=== PATIENT | male | born 1940 | race Caucasian/White ===

== ENCOUNTER 2021-11-14 17:55 | Inpatient (IN) | payer MEDICARE, SELFPAY ==
[2021-11-14] VITALS (8 sets, daily range): BP systolic 102–138; BP diastolic 61–103; PULSE 59–77; RESP 13–26; TEMP 36.6–37.3; O2SAT 78–96; BMI 30.8; BMI 30.7
--- NOTE | 2021-11-14 18:08 | EKG12_ITS ---
Test Reason : Blood Pressure : / mmHG Vent. Rate : 063 BPM Atrial Rate : 093 BPM P-R Int : 000 ms QRS Dur : 102 ms QT Int : 414 ms P-R-T Axes : 064 -20 043 degrees QTc Int : 423 ms Sinus rhythm with 2nd degree A-V block (Mobitz I) Inferior-posterior infarct , age undetermined Abnormal ECG Confirmed by RAMONA ALLEN, JEANNETTE ([id number]), technical writer and editor WIN ZAMORA ([id number]) on 11/15/2021 1:24:23 PM Referred By: Confirmed By:JEANNETTE GREENE MD
--- NOTE | 2021-11-14 18:08 | RAD_ITS ---
STUDY: X-RAY CHEST REASON FOR EXAM: Male, 81 years old. dyspnea, cough TECHNIQUE: Single AP portable view of the chest. COMPARISON: None. FINDINGS: Patchy alveolar opacities throughout both lungs consistent with bilateral pneumonia. There is no demonstrated pleural abnormality. There is moderate cardiac enlargement. Normal mediastinum and kaela. Normal visualized pulmonary arteries. Normal visualized aortic arch and descending thoracic aorta. Normal visualized thoracic spine. Normal visualized ribs, clavicles, and shoulders. There is no demonstrated abnormality of the visualized soft tissue structures of the upper abdomen. RAD/Chest 1 View (Portable) IMPRESSION: Patchy bilateral pneumonia. Electronically Signed: Serafin Martinez MD at 18:49 EDT ,
--- NOTE | 2021-11-14 18:09 | ED.VIS.DYS ---
HPI History of Present Illness Chief Complaint: Shortness of Breath Informant: patient and spouse/S.O. Onset/Context/Timing Onset: Weeks (1) Context: gradual and onset Timing: Continuous Quality: Positive for Dyspnea on exertion (Now at rest) Current Severity: Moderate Maximum Severity: Moderate Worsened by: Exertion and Coughing; Not Worsened By Lying flat Relieved by: Rest Associated Symptoms cough Chest Pain: Positive for None Narrative Narrative: Patient has been having cough for about 2 weeks, short of breath for about the past week, was checking his oxygen levels today and he was in the 70s. He is not on oxygen, he is healthy except for history of sleep apnea. He went to urgent care about a week ago when he started feeling short of breath, they put him on doxycycline and prednisone for his cough. He has been taking those for the last week and progressively getting worse with regards to his symptoms. No chest discomfort, no pedal edema, no palpitations. [facility] Medical History Former smoker Sleep apnea Home Medications aspirin [Halfprin] 81 mg PO DAILY 11/14/21 [History Last Taken Unknown] doxycycline hyclate 100 mg PO BID 11/14/21 [History Last Taken Unknown] multivitamin with iron [Multivitamins/Iron FC] 1 tab PO DAILY 11/14/21 [History Last Taken Unknown] prednisone 40 mg PO DAILY 11/14/21 [History Last Taken Unknown] Allergy/AdvReac Type Severity Reaction Status Date / Time No Known Allergies Allergy Verified 11/14/21 17:57 Surgical History (Updated 11/14/21 @ 18:02 by Domingo Rose) History of appendectomy Hx of tonsillectomy Social History Smoking Status: Former smoker ROS ROS ED Constitutional Constitutional ED: Reports fatigue, fever(s) and malaise; Denies body ache(s), chills or headache(s) Eyes Eyes: Denies change in vision or diplopia ENT ENT ED: Denies rhinorrhea or sore throat Cardiovascular Cardiovascular: Denies chest pain, orthopnea or palpitations Respiratory/Chest Respiratory/Chest: Reports cough, dyspnea and dyspnea on exertion; Denies orthopnea Gastrointestinal Gastrointestinal: Denies abdominal pain, diarrhea, nausea or vomiting Genitourinary Genitourinary ED: Denies dysuria or hematuria Musculoskeletal Musculoskeletal: Denies back pain or neck pain Integumentary Denies abscess or rash Neurologic Neurologic: Denies headache(s), paresthesias or weakness Psychiatric Psychiatric: Denies anxiety or suicidal thoughts EXAM Physical Exam Const Vital Signs: 11/14/21 17:57 11/14/21 17:59 11/14/21 18:17 Temperature 99.1 F Temperature Source Oral Pulse Rate 76 70 Respiratory Rate 26 H 21 H Respiratory Effort Short of Breath Respiratory Depth Shallow Respiratory Pattern Tachypnea Blood Pressure 137/103 H 137/103 H Blood Pressure Mean 114 114 Pulse Ox 78 95 Oxygen Delivery Method Room Air Nasal Cannula Nasal Cannula Oxygen Flow Rate (L/min) 3 3 11/14/21 18:18 11/14/21 18:57 11/14/21 19:11 Temperature 99.1 F Temperature Source Temporal Pulse Rate 68 77 71 Respiratory Rate 20 H 18 13 Respiratory Effort Respiratory Depth Respiratory Pattern Blood Pressure 126/79 H 121/61 H 102/75 Blood Pressure Mean 94 81 84 Pulse Ox 92 94 96 Oxygen Delivery Method Nasal Cannula Nasal Cannula Nasal Cannula Oxygen Flow Rate (L/min) 3 Positive well nourished and well developed Constitutional Narrative: Well-appearing, no distress General Appearance ED: well developed and NAD HEENT Reports moist mucous membranes normocephalic and atraumatic Eyes PERRL and EOMs intact bilaterally Neck full ROM and supple Resp normal respiratory effort Resp Narrative: High-pitched rhonchi both bases Effort and Inspection: able to speak in complete sentences Cardio no murmurs Rate: Negative for bradycardia or tachycardic Rhythm: abnormal rhythm irregularly irregular GI non-tender and non-distended Auscultation: normoactive bowel sounds Palpation: soft Back/Spine no CVA tenderness General Back: other FROM Extremity normal to inspection and no calf tenderness General Extremety ED: Negative for edema, pulses abnormal or tenderness General Extremity: Negative for edema or pulses abnormal Neuro oriented x3, CN's II-XII intact bilaterally and no sensory deficits noted Sensorium / Orientation: awake and alert Motor Exam: strength 5/5 throughout Skin no rashes or lesions noted and no wounds MDM MDM MDM Narrative Medical decision making narrative: At rest patient is doing well without dyspnea requiring breathing treatment or other acute intervention except for oxygen, on O2 liter cannula he is doing well at 94-96%. Given his oxygen requirement, failure of outpatient doxycycline that he has been on for 1 week, we will start him on antibiotics including Zithromax to cover atypicals and admit him to the hospital for further treatment and evaluation. Lab Data Attestation: I reviewed the patient's lab results. Labs: Laboratory Results - last 24 hr 11/14/21 11/14/21 11/14/21 18:10 18:10 18:10 WBC 16.2 H RBC 4.79 Hgb 15.2 Hct 43.7 MCV 91.2 MCH 31.7 MCHC 34.8 RDW Std Deviation 41.0 RDW Coeff of Una 12.4 Plt Count 342 MPV 9.6 Immature Gran % (Auto) 1.000 H Neut % (Auto) 86.5 H Lymph % (Auto) 4.[address] [place] % (Auto) 6.5 Eos % (Auto) 1.6 Baso % (Auto) 0.3 Absolute Neuts (auto) 14.1 H Absolute Lymphs (auto) 0.67 L Nucleated RBC % 0 Sodium 136 Potassium 3.3 L Chloride 103 Carbon Dioxide 26.0 Anion Gap 7 BUN 21 H Creatinine 1.04 Estim Creat Clear Calc 46.81 Est GFR (MDRD) Af Amer 88 Est GFR (MDRD) Non-Af 72 BUN/Creatinine Ratio 20.2 H Glucose 134 H Lactic Acid 1.7 Calcium 9.2 Troponin I High Sens 22 B-Natriuretic Peptide 11/14/21 18:10 WBC RBC Hgb Hct MCV MCH MCHC RDW Std Deviation RDW Coeff of Una Plt Count MPV Immature Gran % (Auto) Neut % (Auto) Lymph % (Auto) [place] % (Auto) Eos % (Auto) Baso % (Auto) Absolute Neuts (auto) Absolute Lymphs (auto) Nucleated RBC % Sodium Potassium Chloride Carbon Dioxide Anion Gap BUN Creatinine Estim Creat Clear Calc Est GFR (MDRD) Af Amer Est GFR (MDRD) Non-Af BUN/Creatinine Ratio Glucose Lactic Acid Calcium Troponin I High Sens B-Natriuretic Peptide 89.5 Radiography Chest X-Ray - ED: 1 View, Read by ED Physician and Left Infiltrate Diagnostic Testing: Clinical Impression(s) from Imaging Studies Chest X-Ray 11/14/21 18:08 IMPRESSION: Patchy bilateral pneumonia. Electronically Signed: Serafin Martinez MD at 18:49 EDT , Rhythm Strip Rhythm Strip: poss afib (see ekg) Rate: 70 Ectopy: None EKG Initial EKG: Attestation: I personally reviewed and interpreted this EKG as follows: Interpretation: Sinus Rhythm, No Acute Injury Pattern, LAFB and AV Block (Type 1 Mobitz) Comments: inf Q waves Prior: No Prior Discharge Plan Dx/Rx/DC Orders Clinical Impression: Sepsis due to pneumonia, Pneumonia, Hypoxemia, Failure of outpatient treatment Disposition Disposition: Acute Care Hospital [facility]
[2021-11-14 18:33] LABS: Absolute Lymphocyte Count 0.67 X10^3/uL (0.83-4.51); Absolute Neutrophil Count 14.1 X10^3/uL (2.0-7.7); Basophil# 0.05 X10^3/uL; Basophil% 0.3 % (0-1); Eosinophil# 0.26 X10^3/uL; Eosinophils% 1.6 % (0-5); Hematocrit 43.7 % (40-54); Hemoglobin 15.2 g/dL (13.0-16.5); Lymphocyte # 0.67 X10^3/ul (0.83-4.51); Lymphocyte % 4.1 % (19-41); Mean Corp Hgb Conc 34.8 g/dL (32-36); Mean Corpuscular Hgb 31.7 pg (27.0-32.0); Mean Corpuscular Volume 91.2 fL (80-94); Mean Platelet Vol. 9.6 fl (6.2-12.0); Monocyte# 1.05 X10^3/uL; Monocyte% 6.5 % (0-10); NRBC Flagged by Analyzer 0 % (0-5); Neutrophil # 14.05 X10^3/uL (2.7-7.7); Neutrophil % 86.5 % (47-70); Platelet Count 342 K/mm3 (150-450); RBC Distribution Width CV 12.4 % (11.6-14.6); Red Blood Count 4.79 M/mm3 (4.6-6.2); White Blood Count 16.2 K/mm3 (4.4-11.0)
[2021-11-14 19:08] LABS: BNP,B-Type NATRIURETIC PEPTIDE 89.5 pg/mL (0-100)
[2021-11-14 19:09] LABS: Anion Gap 7 (5-15); BUN 21 mg/dL (7-18); BUN/Creat Ratio 20.2 RATIO (10-20); Calcium,Total 9.2 mg/dL (8.5-10.1); Chloride 103 mmol/L (98-107); Creatinine, Serum 1.04 mg/dL (0.70-1.30); EST Glomerular Filtration Rate 72 mL/min (>60); Est Glom Filt Rate - Afr Amer 88 mL/min (>60); Estimated Creatinine Clearance 46.81 ml/min; Glucose 134 mg/dL (74-106); Potassium 3.3 mmol/L (3.5-5.1); Sodium Level 136 mmol/L (136-145); Troponin-I HS 22 pg/mL (3.0-78.0)
[2021-11-14 19:12] LABS: Lactic Acid 1.7 mmol/L (0.4-1.9)
--- NOTE | 2021-11-14 19:29 | HP.PCM_ITS ---
Documented by User: FLORIDALMA Khan 11/14/21 19:43 HPI - General General Date of Admission: 11/14/21 Date of Service: 11/14/21 Chief Complaint: Shortness of breath HPI Narrative ELSY RIVERA, is a 81 M who presents with complaints of shortness of breath. Patient states that he was diagnosed outpatient to have pneumonia and was placed on doxycycline and a prednisone taper. Patient states that despite this he has had increasing shortness of breath and has been getting worse instead of better. Patient noted to be hypoxic on arrival to ER with oxygen saturations at 78% on room air. Patient currently on nasal cannula oxygen at 3 L/min with O2 sat 96%. Patient denies any significant medical history and states that he does have sleep apnea however he does not wear CPAP or BiPAP for this. Patient states his only medication at home is a baby aspirin as well as a multivitamin. Patient identifies his primary care physician as Dr. Salinas. [facility] Medical History (Updated 11/14/21 @ 19:37 by BRANDI KhanC) Former smoker Sleep apnea Home Medications aspirin [Halfprin] 81 mg PO DAILY 11/14/21 [History Last Taken Unknown] doxycycline hyclate 100 mg PO BID 11/14/21 [History Last Taken Unknown] multivitamin with iron [Multivitamins/Iron FC] 1 tab PO DAILY 11/14/21 [History Last Taken Unknown] prednisone 40 mg PO DAILY 11/14/21 [History Last Taken Unknown] Allergy/AdvReac Type Severity Reaction Status Date / Time No Known Allergies Allergy Verified 11/14/21 17:57 Family History (Updated 11/14/21 @ 19:[address] Maryam Rodriguez MD) Father Myocardial infarction Heart disease Hypertension Mother Dementia Surgical History (Updated 11/14/21 @ 19:[address] Maryam Rodriguez MD) History of appendectomy History of surgery on arm Hx of tonsillectomy S/P bilateral cataract extraction Social History (Updated 11/14/21 @ 19:[address] Maryam Rodriguez MD) household members: spouse housing: house Smoking Status: Former smoker how long ago did patient quit smoking: Quit ~ 10 yrs prior, smoked 1 ppd initially then trended to 2-3 cig/day. alcohol intake: current alcohol intake frequency: 0-2 drinks per day details: 1 cocktail with dinner daily. substance use type: does not use ROS Constitutional Constitutional: Reports malaise; Denies anorexia, chills, fatigue or fever(s) Cardiovascular Cardiovascular: Denies chest pain, edema, palpitations or syncope Respiratory/Chest Respiratory/Chest: Reports cough, shortness of breath at rest, shortness of breath with exertion and wheezing Gastrointestinal Gastrointestinal: Denies abdominal pain, constipation, diarrhea, nausea or vomiting Genitourinary Genitourinary: Denies dysuria Musculoskeletal Musculoskeletal: Denies back pain, extremity pain, joint pain or joint stiffness Integumentary Integumentary: Denies dry skin Neurologic Neurologic: Denies abnormal gait, abnormal speech, confusion or dizziness Psychiatric Psychiatric: Denies anxiety or depression Endocrine Endocrinology: Denies change in body appearance Hematologic/Lymphatic Hematologic/Lymphatic: Denies anemia or easy bleeding Vital Signs Vital Signs Vital Signs: 11/14/21 17:57 11/14/21 17:59 11/14/21 18:17 Temperature 99.1 F Temperature Source Oral Pulse Rate 76 70 Respiratory Rate 26 H 21 H Respiratory Effort Short of Breath Respiratory Depth Shallow Respiratory Pattern Tachypnea Blood Pressure 137/103 H 137/103 H Blood Pressure Mean 114 114 Pulse Ox 78 95 Oxygen Delivery Method Room Air Nasal Cannula Nasal Cannula Oxygen Flow Rate (L/min) 3 3 11/14/21 18:18 11/14/21 18:57 11/14/21 19:11 Temperature 99.1 F Temperature Source Temporal Pulse Rate 68 77 71 Respiratory Rate 20 H 18 13 Respiratory Effort Respiratory Depth Respiratory Pattern Blood Pressure 126/79 H 121/61 H 102/75 Blood Pressure Mean 94 81 84 Pulse Ox 92 94 96 Oxygen Delivery Method Nasal Cannula Nasal Cannula Nasal Cannula Oxygen Flow Rate (L/min) 3 Weight Weight: 185 lb 6.54 oz Body Mass Index (BMI) 30.8 Physical Exam Const alert, oriented x3 and no apparent distress General Appearance: cooperative HEENT normocephalic and head/scalp atraumatic Eyes conjunctivae normal and no scleral icterus Neck no lymphadenopathy and supple General: trachea midline Resp normal respiratory effort and normal air movement Auscultation: wheezes expiratory wheezes, scattered wheezes, anterior and posterior Cardio regular rate, regular rhythm, S1 normal heart sound, S2 normal heart sound and peripheral pulses 2+ throughout GI normal to inspection, nondistended, normoactive bowel sounds, soft to palpation and non-tender Extremity normal capillary refill and no clubbing, cyanosis or edema General Extremity: no tenderness to palpation of joints or extremities Skin General Skin Exam: no breakdown and turgor normal Lesions: no lesions Rashes: no rashes Neuro no focal motor deficits and no sensory deficits noted Motor Exam: Negative for general weakness Psych thought process normal, cooperative and affect normal Appearance: appropriate Results Lab / Micro Data Result Diagrams: 11/14/21 18:10 11/14/21 18:10 Labs: Laboratory Results - last 24 hr 11/14/21 18:10: WBC 16.2 H, RBC 4.79, Hgb 15.2, Hct 43.7, MCV 91.2, MCH 31.7, MCHC 34.8, RDW Std Deviation 41.0, RDW Coeff of Una 12.4, Plt Count 342, MPV 9.6, Immature Gran % (Auto) 1.000 H, Neut % (Auto) 86.5 H, Lymph % (Auto) 4.1 L, [place] % (Auto) 6.5, Eos % (Auto) 1.6, Baso % (Auto) 0.3, Absolute Neuts (auto) 14.1 H, Absolute Lymphs (auto) 0.67 L, Nucleated RBC % 0 11/14/21 18:10: Sodium 136, Potassium 3.3 L, Chloride 103, Carbon Dioxide 26.0, Anion Gap 7, BUN 21 H, Creatinine 1.04, Estim Creat Clear Calc 46.81, Est GFR (MDRD) Af Amer 88, Est GFR (MDRD) Non-Af 72, BUN/Creatinine Ratio 20.2 H, Glucose 134 H, Calcium 9.2, Troponin I High Sens 22 11/14/21 18:10: Lactic Acid 1.7 11/14/21 18:10: B-Natriuretic Peptide 89.5 Micro: Microbiology 11/14/21 18:27 Nasal Secretion SARS-CoV-2 & FLU Antigen (Rapid) - Final Rhythm Strip Rhythm Strip: poss afib (see ekg) Rate: 70 Ectopy: None Radiology Impression Chest X-Ray 11/14/21 18:08 IMPRESSION: Patchy bilateral pneumonia. Electronically Signed: Serafin Martinez MD at 18:49 EDT , Assessment & Plan Assessment/Plan (1) Pneumonia: QUALIFIERS: Laterality: bilateral Lung location: unspecified part of lung Pneumonia type: due to unspecified organism Qualified Code(s): J18.9 - Pneumonia, unspecified organism (2) Hypoxemia: (3) Failure of outpatient treatment: PLAN: 1. Acute hypoxia secondary to bilateral pneumonia -Admit to [facility] -Patient has been on doxycycline and prednisone for 5 days with no improvement and increasing shortness of breath, will DC prednisone and doxycycline -Patient placed on Rocephin and azithromycin -Sputum culture ordered -Encourage incentive spirometry -PT and OT to eval and treat -CBC, CMP ordered for a.m. -Urine Legionella and strep pneumonia ordered -Respiratory panel and COVID panel ordered -Scheduled DuoNeb nebulizer treatments as well as as needed albuterol treatments ordered -Vital signs per protocol, currently stable 2. Hypokalemia -Patient mildly hypokalemic at 3.3 -Potassium chloride 40 mEq p.o. x1 ordered -CMP ordered for a.m. -We will check magnesium level 3. Leukocytosis -Likely secondary to p.o. steroids that patient has been on for 5 days however due to pneumonia we will continue to monitor with daily CBC DVT prophylaxis-subcu Lovenox This patient was seen by Alis Grey NP-C under the supervision of Dr. Rodriguez. 28 minutes spent in clinical coordination of patient's plan of care. Documented by User: Dr. Maryam Rodriguez MD 11/14/21 19:44 HPI - General General Date of Admission: 11/14/21 [facility] Medical History (Updated 11/14/21 @ 19:37 by Alis Grey NP-C) Former smoker Sleep apnea Home Medications aspirin [Halfprin] 81 mg PO DAILY 11/14/21 [History Last Taken Unknown] doxycycline hyclate 100 mg PO BID 11/14/21 [History Last Taken Unknown] multivitamin with iron [Multivitamins/Iron FC] 1 tab PO DAILY 11/14/21 [History Last Taken Unknown] prednisone 40 mg PO DAILY 11/14/21 [History Last Taken Unknown] Allergy/AdvReac Type Severity Reaction Status Date / Time No Known Allergies Allergy Verified 11/14/21 17:57 Family History (Updated 11/14/21 @ 19:[address] Maryam Rodriguez MD) Father Myocardial infarction Heart disease Hypertension Mother Dementia Surgical History (Updated 11/14/21 @ 19:[address] Maryam Rodriguez MD) History of appendectomy History of surgery on arm Hx of tonsillectomy S/P bilateral cataract extraction Social History (Updated 11/14/21 @ 19:[address] Maryam Rodriguez MD) household members: spouse housing: house Smoking Status: Former smoker how long ago did patient quit smoking: Quit ~ 10 yrs prior, smoked 1 ppd initially then trended to 2-3 cig/day. alcohol intake: current alcohol intake frequency: 0-2 drinks per day details: 1 cocktail with dinner daily. substance use type: does not use Results Lab / Micro Data Result Diagrams: 11/14/21 18:10 11/14/21 18:10
[2021-11-14] MEDS: Ipratropium/Albuterol Sulfate 3 ML AMPUL.NEB INHALATION (20:30)
[2021-11-14] MEDS: 0.9% Normal Saline 1,000 ML 100 ML IV (21:26)
[2021-11-14] MEDS: Potassium Chloride Oral Tablet 20 MEQ 40 MEQ PO (21:44)
[2021-11-15] VITALS (11 sets, daily range): BP systolic 115–126; BP diastolic 48–68; PULSE 50–86; RESP 16–22; TEMP 36.6–38.1; O2SAT 90–95
[2021-11-15] MEDS: Albuterol 2.5 MG/3 ML VIAL.NEB. INHALATION (03:50)
[2021-11-15 05:37] LABS: Absolute Lymphocyte Count 0.52 X10^3/uL (0.83-4.51); Absolute Neutrophil Count 13.4 X10^3/uL (2.0-7.7); Basophil# 0.04 X10^3/uL; Basophil% 0.3 % (0-1); Eosinophil# 0.14 X10^3/uL; Eosinophils% 0.9 % (0-5); Lymphocyte # 0.52 X10^3/ul (0.83-4.51); Lymphocyte % 3.5 % (19-41); Mean Corp Hgb Conc 35.1 g/dL (32-36); Mean Corpuscular Hgb 31.8 pg (27.0-32.0); Mean Corpuscular Volume 90.5 fL (80-94); Mean Platelet Vol. 9.5 fl (6.2-12.0); Monocyte# 0.87 X10^3/uL; Monocyte% 5.8 % (0-10); NRBC Flagged by Analyzer 0 % (0-5); Neutrophil # 13.38 X10^3/uL (2.7-7.7); Neutrophil % 88.7 % (47-70); POSITIVE DIFFERENTIAL YES; Platelet Count 273 K/mm3 (150-450); RBC Distribution Width CV 12.4 % (11.6-14.6); Red Blood Count 4.09 M/mm3 (4.6-6.2); White Blood Count 15.1 K/mm3 (4.4-11.0)
[2021-11-15 05:40] LABS: Differential Indicated SCAN CRITERIA MET
[2021-11-15 06:01] LABS: BUN 19 mg/dL (7-18); Creatinine, Serum 0.85 mg/dL (0.70-1.30); EST Glomerular Filtration Rate 91 mL/min (>60); Estimated Creatinine Clearance 55.14 ml/min; Glucose 136 mg/dL (74-106)
[2021-11-15 06:02] LABS: ALB/GLOB Ratio 0.7 RATIO (0.9-2.4); AST(SGOT) 23 U/L (15-37); Alanine Aminotransfer ALT/SGPT 18 U/L (16-61); Albumin, Serum 2.5 g/dL (3.2-5.0); Alkaline Phosphatase 63 U/L (45-117); Anion Gap 6 (5-15); BUN/Creat Ratio 22.3 RATIO (10-20); Calcium,Total 8.4 mg/dL (8.5-10.1); Chloride 106 mmol/L (98-107); Est Glom Filt Rate - Afr Amer 110 mL/min (>60); Globulin 3.4 g/dL (2.2-4.2); Potassium 3.8 mmol/L (3.5-5.1); Protein, Total 5.9 g/dL (6.4-8.2); Sodium Level 136 mmol/L (136-145)
[2021-11-15] MEDS: Ipratropium/Albuterol Sulfate 3 ML AMPUL.NEB INHALATION ×3 (06:59→19:36)
[2021-11-15] MEDS: Aspirin E.C. 81 MG Tablet PO (08:17)
[2021-11-15] MEDS: Enoxaparin 40 MG/0.4 ML Syringe SC (08:17)
--- NOTE | 2021-11-15 09:43 | PN.HOSP_ITS ---
Subjective Subjective Patient is an 81-year-old gentleman presenting with 2-week history of persistent cough and progressive shortness of breath over the past couple of days. Chest x-ray obtained on admission demonstrated patchy bilateral pneumonia admitted to regular nursing floor where patient is currently being managed Objective Data Objective Data Vital Signs: Vital Signs Temp Pulse Resp BP Pulse Ox 99.3 F H 74 22 H 126/68 H 92 11/15/21 08:15 11/15/21 08:15 11/15/21 08:15 11/15/21 08:15 11/15/21 08:15 Oxygen Flow Rate (L/min) 3 Oxygen Delivery Method Nasal Cannula Weight: 85.4 kg Body Mass Index (BMI) 30.7 Intake & Output: Intake and Output for Last 24 Hours 11/13/21 11/14/21 11/15/21 23:59 23:59 23:59 Intake Total 315 / 315 980 / 980 Balance 315 / 315 980 / 980 Lab / Micro Data Result Diagrams: 11/15/21 05:28 11/15/21 05:28 Labs: Laboratory Results - last 24 hr 11/14/21 18:10: WBC 16.2 H, RBC 4.79, Hgb 15.2, Hct 43.7, MCV 91.2, MCH 31.7, MCHC 34.8, RDW Std Deviation 41.0, RDW Coeff of Una 12.4, Plt Count 342, MPV 9.6, Immature Gran % (Auto) 1.000 H, Neut % (Auto) 86.5 H, Lymph % (Auto) 4.1 L, [place] % (Auto) 6.5, Eos % (Auto) 1.6, Baso % (Auto) 0.3, Absolute Neuts (auto) 14.1 H, Absolute Lymphs (auto) 0.67 L, Nucleated RBC % 0 11/14/21 18:10: Sodium 136, Potassium 3.3 L, Chloride 103, Carbon Dioxide 26.0, Anion Gap 7, BUN 21 H, Creatinine 1.04, Estim Creat Clear Calc 46.81, Est GFR (MDRD) Af Amer 88, Est GFR (MDRD) Non-Af 72, BUN/Creatinine Ratio 20.2 H, Glucose 134 H, Calcium 9.2, Troponin I High Sens 22 11/14/21 18:10: Lactic Acid 1.7 11/14/21 18:10: B-Natriuretic Peptide 89.5 11/14/21 18:10: Magnesium 2.0 11/15/21 05:28: WBC 15.1 H, RBC 4.09 L, Hgb 13.0, Hct 37.0 L, MCV 90.5, MCH 31.8, MCHC 35.1, RDW Std Deviation 41.0, RDW Coeff of Una 12.4, Plt Count 273, MPV 9.5, Immature Gran % (Auto) 0.800, Neut % (Auto) 88.7 H, Lymph % (Auto) 3.5 L, [place] % (Auto) 5.8, Eos % (Auto) 0.9, Baso % (Auto) 0.3, Absolute Neuts (auto) 13.4 H, Absolute Lymphs (auto) 0.52 L, Nucleated RBC % 0 11/15/21 05:28: Sodium 136, Potassium 3.8, Chloride 106, Carbon Dioxide 24.0, Anion Gap 6, BUN 19 H, Creatinine 0.85, Estim Creat Clear Calc 55.14, Est GFR (MDRD) Af Amer 110, Est GFR (MDRD) Non-Af 91, BUN/Creatinine Ratio 22.3 H, Glucose 136 H, Calcium 8.4 L, Total Bilirubin 0.60, AST 23, ALT 18, Alkaline Phosphatase 63, Total Protein 5.9 L, Albumin 2.5 L, Globulin 3.4, Albumin/Globulin Ratio 0.7 L Micro: Microbiology 11/14/21 20:25 Mucosa - Nasopharyngeal Respiratory Panel (PCR) - Final 11/14/21 22:00 Urine, Clean Catch Legionella Antigen - Final 11/14/21 22:00 Interface Orders Streptococcus pneumoniae Antigen (M - Final 11/14/21 18:27 Nasal Secretion SARS-CoV-2 & FLU Antigen (Rapid) - Final Radiography Diagnostic Testing: Radiology Impression Chest X-Ray 11/14/21 18:08 IMPRESSION: Patchy bilateral pneumonia. Electronically Signed: Serafin Martinez MD at 18:49 EDT , Rhythm Strip Rhythm Strip: poss afib (see ekg) Rate: 70 Ectopy: None Physical Exam Narrative GENERAL: cooperative but dyspneic at rest HEENT: Atraumatic; EYES; Anicteric, Normal Conjunctiva NECK; supple, normal thyroid, RESPIRATORY: Diminished to auscultation CARDIOVASCULAR: Regular S1 S2, GI: soft, normoactive bowel sounds, : No Renal angle tenderness; EXTREMITIES: No edema, no clubbing, MUSCULOSKELETAL: no muscle wasting NEURO: Awake; no lateralizing signs. SKIN: No Rash PSYCH; Flat affect Assessment & Plan Assessment/Plan (1) Pneumonia: QUALIFIERS: Pneumonia type: due to unspecified organism Laterality: bilateral Lung location: unspecified part of lung Qualified Code(s): J18.9 - Pneumonia, unspecified organism (2) Hypoxemia: (3) Failure of outpatient treatment: PLAN: Patient is an 81-year-old gentleman presenting with 2-week history of persistent cough and progressive shortness of breath over the past couple of days. Chest x-ray obtained on admission demonstrated patchy bilateral pneumonia admitted to regular nursing floor where patient is currently being managed 1. Acute hypoxic respiratory failure ? Present on admission. This is secondary to patient bilateral pneumonia patient was placed on broad-spectrum antibiotic therapy as well as supplemental oxygen which is currently being titrated to keep saturation greater than 90. Patient still remains hypoxic and dyspneic at rest. Patient was on IV fluid this is being continued given 40 mg of IV Lasix for suspected fluid overload 2. Obstructive sleep apnea ? Per history patient currently does not use any PAP therapy at night 3. Hypokalemia ? Corrected per protocol subsequent monitoring with daily BMPs ordered 4. Class I obesity with BMI of 31.4 ? Weight loss advised 5. Leukocytosis ? Due to patient's underlying infection as well as recent steroid use monitoring with daily CBC 6. DVT prophylaxis ? SC Lovenox Charges/Coding Visit Charges Inpatient E&M: 54692 Subs Hosp L3
[2021-11-15] MEDS: Furosemide 40 MG/4 ML Vial IV (10:21)
[2021-11-15] MEDS: 0.9% Saline Lock 10 ML Syringe IV ×2 (10:21→20:37)
--- NOTE | 2021-11-15 13:05 | CASEMGMT ---
CAITLIN CROWDER Assessment: Face to Face with pt for initial transition planning/care coordination assessment. CAITLIN CROWDER introduced self and role at [facility], pt voices understanding and consents to assessment. Pt is A/O x4 and answers all questions appropriately at this time. Pt just left from room. Pt just got out of the bathroom and is now back in chair, O2 on and patient sob with conversation. Care providers, pharmacy, and demographics verified/updated. Admitting Dx: hypoxia, bilat pna PCP:Rita Specialists: Pt denies having any specialists. Preferred Pharmacy: [facility] Insurance: [facility] Prescription Benefit: yes LW/HPOA: Pt states he has a LW/DPOA and his DPOA is his . He is aware this is not on file at [facility] and he may bring in to be scanned into chart. LNOK: Sarah Willson, Living Arrangements: Pt lives with in a single story house with 1 step to enter with a rail. Pt reports he is I in ADL's and denies concerns at home. Transportation: Pt drives self and denies concerns with transportation. DME/HHC/SNF: Pt has a pox at home and no further DME. Pt denies hx of HHC or SNF stays. Pt states no concerns with going home at time of dc. Discussed local in network DME companies should pt need O2 at dc, pt denies preference. Discussed therapy post dc if recommended. Pt states he is not opposed to this. Pt states he would designate his to discuss dc plans with if you need to discuss it with someone, but prefers not. Pt states no further concerns/needs. CM to follow. Advised pt to ask CM if any further question/concerns/needs arise, voices understanding. Pt Goal: Home Plan: Home
[2021-11-15] MEDS: Ceftriaxone 1 GM/50 ML BAG IV (20:52)
[2021-11-16] VITALS (11 sets, daily range): BP systolic 124–134; BP diastolic 54–57; PULSE 52–96; RESP 15–28; TEMP 37–38.1; O2SAT 90–96
[2021-11-16] MEDS: Acetaminophen 325 MG Tablet 650 MG PO ×2 (01:26→16:04)
[2021-11-16] MEDS: Ipratropium/Albuterol Sulfate 3 ML AMPUL.NEB INHALATION ×2 (01:43→19:14)
--- NOTE | 2021-11-16 02:05 | RAD_ITS ---
STUDY: X-RAY CHEST REASON FOR EXAM: Male, 81 years old. increased O2 TECHNIQUE: AP portable upright COMPARISON: 11/14/2021. FINDINGS: There are infiltrates along both the right and the left chest wall. There is no demonstrated pleural abnormality. There is mild cardiomegaly. Normal mediastinum and kaela. Normal visualized pulmonary arteries. Normal visualized aortic arch and descending thoracic aorta. Normal visualized thoracic spine. Normal visualized ribs, clavicles, and shoulders. There is no demonstrated abnormality of the visualized soft tissue structures of the upper abdomen. RAD/Chest 1 View (Portable) IMPRESSION: Bilateral infiltrates. Electronically Signed: Rigo Magaña MD at 2:35 EDT ,
--- NOTE | 2021-11-16 02:05 | PCM.HOSP.N ---
Hospitalist Note Notified by Nena TUCKER that patient's oxygen needs have went up to 6 L nasal cannula oxygen and that she is currently hearing rhonchi in his bases which were not present on previous exam. We will obtain a repeat chest x-ray.
[2021-11-16 06:15] LABS: Absolute Lymphocyte Count 0.97 X10^3/uL (0.83-4.51); Absolute Neutrophil Count 11.7 X10^3/uL (2.0-7.7); Basophil# 0.04 X10^3/uL; Basophil% 0.3 % (0-1); Eosinophil# 0.08 X10^3/uL; Eosinophils% 0.6 % (0-5); Hematocrit 35.9 % (40-54); Hemoglobin 12.4 g/dL (13.0-16.5); Lymphocyte # 0.97 X10^3/ul (0.83-4.51); Mean Corp Hgb Conc 34.5 g/dL (32-36); Mean Corpuscular Hgb 31.1 pg (27.0-32.0); Mean Platelet Vol. 9.8 fl (6.2-12.0); Monocyte# 0.95 X10^3/uL; Monocyte% 6.9 % (0-10); NRBC Flagged by Analyzer 0 % (0-5); Neutrophil # 11.66 X10^3/uL (2.7-7.7); Neutrophil % 84.6 % (47-70); Platelet Count 292 K/mm3 (150-450); RBC Distribution Width CV 12.2 % (11.6-14.6); RBC Distribution Width SD 40.3 fl (35.1-43.9); Red Blood Count 3.99 M/mm3 (4.6-6.2); White Blood Count 13.8 K/mm3 (4.4-11.0)
[2021-11-16 06:38] LABS: Anion Gap 7 (5-15); BUN 21 mg/dL (7-18); BUN/Creat Ratio 23.4 RATIO (10-20); Calcium,Total 8.6 mg/dL (8.5-10.1); Chloride 101 mmol/L (98-107); EST Glomerular Filtration Rate 86 mL/min (>60); Est Glom Filt Rate - Afr Amer 104 mL/min (>60); Estimated Creatinine Clearance 52.07 ml/min; Glucose 121 mg/dL (74-106); Magnesium 2.2 mg/dL (1.6-2.6); Potassium 3.6 mmol/L (3.5-5.1); Sodium Level 134 mmol/L (136-145)
--- NOTE | 2021-11-16 07:20 | PN.HOSP_ITS ---
Subjective Subjective Patient seen still remains dyspneic at rest. Currently requiring 3 to 5 L flow per minute to maintain adequate saturation Objective Data Objective Data Vital Signs: Vital Signs Temp Pulse Resp BP Pulse Ox 99.3 F H 89 20 H 131/54 H 92 11/16/21 02:09 11/16/21 02:09 11/16/21 02:09 11/16/21 02:09 11/16/21 07:14 Oxygen Flow Rate (L/min) 4 Oxygen Delivery Method Nasal Cannula Weight: 84.6 kg Body Mass Index (BMI) 30.7 Intake & Output: Intake and Output for Last 24 Hours 11/14/21 11/15/21 11/16/21 23:59 23:59 23:59 Intake Total 315 / 315 1680 / 1920 695 / 695 Balance 315 / 315 1680 / 1920 695 / 695 Medical Nutrition Assessment Dietitian: Malnutrition Criteria Met Start: 11/15/21 10:46 Freq: Status: Active Protocol: Document 11/15/21 10:46 DWAINE (Rec: 11/15/21 10:46 DWAINE [id number]) Nutrition Malnutrition Evidence of Malnutrition Exists Yes Malnutrition (severe): Acute Illness/Injury Evidenced By Suboptimal Energy Intake ( Severe),Weight Loss (Severe) Clinical Problem Acute Disease or Injury Related Malnutrition Etiology related to acute illness and inability to consume adequate nutrition to meet est nutritional needs Signs/Symptoms as evidenced by 6.1% wt loss and <50% po intake x ~ 2 wks Status Active Problem Recommendation Dietitian Recommendations/Changes Will d/c ensure enlive and give ensure clear w/ medpass 4x/day Will provide fortified foods at meals for increased nutrition if consumed. Lab / Micro Data Result Diagrams: 11/16/21 05:39 11/16/21 05:39 Labs: Laboratory Results - last 24 hr 11/16/21 05:39: WBC 13.8 H, RBC 3.99 L, Hgb 12.4 L, Hct 35.9 L, MCV 90.0, MCH 31.1, MCHC 34.5, RDW Std Deviation 40.3, RDW Coeff of Una 12.2, Plt Count 292, MPV 9.8, Immature Gran % (Auto) 0.600, Neut % (Auto) 84.6 H, Lymph % (Auto) 7.0 L, [place] % (Auto) 6.9, Eos % (Auto) 0.6, Baso % (Auto) 0.3, Absolute Neuts (auto) 11.7 H, Absolute Lymphs (auto) 0.97, Nucleated RBC % 0 11/16/21 05:39: Sodium 134 L, Potassium 3.6, Chloride 101, Carbon Dioxide 26.0, Anion Gap 7, BUN 21 H, Creatinine 0.90, Estim Creat Clear Calc 52.07, Est GFR (MDRD) Af Amer 104, Est GFR (MDRD) Non-Af 86, BUN/Creatinine Ratio 23.4 H, Glu cose 121 H, Calcium 8.6, Magnesium 2.2 Micro: Microbiology 11/14/21 20:25 Mucosa - Nasopharyngeal Respiratory Panel (PCR) - Final 11/14/21 22:00 Urine, Clean Catch Legionella Antigen - Final 11/14/21 22:00 Interface Orders Streptococcus pneumoniae Antigen (M - Final 11/14/21 18:27 Nasal Secretion SARS-CoV-2 & FLU Antigen (Rapid) - Final Radiography Diagnostic Testing: Radiology Impression Chest X-Ray 11/16/21 02:05 IMPRESSION: Bilateral infiltrates. Electronically Signed: Rigo Magaña MD at 2:35 EDT , Rhythm Strip Rhythm Strip: poss afib (see ekg) Rate: 70 Ectopy: None Physical Exam Narrative GENERAL: cooperative but dyspneic at rest HEENT: Atraumatic; EYES; Anicteric, Normal Conjunctiva NECK; supple, normal thyroid, RESPIRATORY: Diminished to auscultation CARDIOVASCULAR: Regular S1 S2, GI: soft, normoactive bowel sounds, : No Renal angle tenderness; EXTREMITIES: No edema, no clubbing, MUSCULOSKELETAL: no muscle wasting NEURO: Awake; no lateralizing signs. SKIN: No Rash PSYCH; Flat affect Assessment & Plan Assessment/Plan (1) Pneumonia: QUALIFIERS: Laterality: bilateral Lung location: unspecified part of lung Pneumonia type: due to unspecified organism Qualified Code(s): J18.9 - Pneumonia, unspecified organism (2) Hypoxemia: (3) Failure of outpatient treatment: PLAN: Patient is an 81-year-old gentleman presenting with 2-week history of persistent cough and progressive shortness of breath over the past couple of days. Chest x-ray obtained on admission demonstrated patchy bilateral pneumonia admitted to regular nursing floor where patient is currently being managed 1. Acute hypoxic respiratory failure ? Present on admission. This is secondary to patient bilateral pneumonia patient was placed on broad-spectrum antibiotic therapy as well as supplemental oxygen which is currently being titrated to keep saturation greater than 90. Patient still remains hypoxic and dyspneic at rest. Patient was on IV fluid this is being continued given 40 mg of IV Lasix for suspected fluid overload -11/16/2021: Patient seen still remains dyspneic at rest. Currently requiring 3 to 5 L flow per minute to maintain adequate saturation 2. Obstructive sleep apnea ? Per history patient currently does not use any PAP therapy at night 3. Hypokalemia ? Corrected per protocol subsequent monitoring with daily BMPs ordered 4. Class I obesity with BMI of 31.4 ? Weight loss advised 5. Leukocytosis ? Due to patient's underlying infection as well as recent steroid use monitoring with daily CBC 6. DVT prophylaxis ? MD Lovenox Charges/Coding Visit Charges Inpatient E&M: 58055 Subs Hosp L2
[2021-11-16] MEDS: Aspirin E.C. 81 MG Tablet PO (10:38)
[2021-11-16] MEDS: Ensure Clear 120 ML Liquid PO ×2 (10:38→13:44)
[2021-11-16] MEDS: Enoxaparin 40 MG/0.4 ML Syringe SC (10:38)
[2021-11-16] MEDS: Ceftriaxone 1 GM/50 ML BAG IV (21:22)
--- NOTE | 2021-11-16 22:34 | NURSING ---
UP TO BATHROOM X STANDBY ASSIST. PULSE OX DROPPED TO 74% ON 6L N/C. RETURNED TO BED. ENCOURAGED DEEP BREATHING. PULSE OX INCREASED TO 92%. PT DENIES DIFFICULTY BREATHING.
[2021-11-17] VITALS (37 sets, daily range): BP systolic 98–142; BP diastolic 48–114; PULSE 49–90; RESP 16–36; TEMP 36.1–37.2; O2SAT 68–98
[2021-11-17 05:44] LABS: Absolute Lymphocyte Count 0.57 X10^3/uL (0.83-4.51); Basophil# 0.05 X10^3/uL; Basophil% 0.3 % (0-1); Eosinophils% 0.6 % (0-5); Hematocrit 36.8 % (40-54); Hemoglobin 12.8 g/dL (13.0-16.5); Lymphocyte # 0.57 X10^3/ul (0.83-4.51); Lymphocyte % 3.6 % (19-41); Mean Corp Hgb Conc 34.8 g/dL (32-36); Mean Corpuscular Hgb 31.2 pg (27.0-32.0); Mean Corpuscular Volume 89.8 fL (80-94); Mean Platelet Vol. 9.9 fl (6.2-12.0); Monocyte# 1.05 X10^3/uL; Monocyte% 6.6 % (0-10); NRBC Flagged by Analyzer 0 % (0-5); Neutrophil # 13.96 X10^3/uL (2.7-7.7); Neutrophil % 88.3 % (47-70); POSITIVE DIFFERENTIAL YES; Platelet Count 298 K/mm3 (150-450); RBC Distribution Width CV 12.2 % (11.6-14.6); RBC Distribution Width SD 40.3 fl (35.1-43.9); White Blood Count 15.8 K/mm3 (4.4-11.0)
[2021-11-17 05:47] LABS: Differential Indicated SCAN CRITERIA MET
[2021-11-17 06:28] LABS: Anion Gap 9 (5-15); BUN 18 mg/dL (7-18); Calcium,Total 8.6 mg/dL (8.5-10.1); Chloride 98 mmol/L (98-107); Creatinine, Serum 0.82 mg/dL (0.70-1.30); EST Glomerular Filtration Rate 95 mL/min (>60); Est Glom Filt Rate - Afr Amer 115 mL/min (>60); Estimated Creatinine Clearance 57.15 ml/min; Glucose 139 mg/dL (74-106); Potassium 3.5 mmol/L (3.5-5.1); Sodium Level 131 mmol/L (136-145)
[2021-11-17] MEDS: Ipratropium/Albuterol Sulfate 3 ML AMPUL.NEB INHALATION ×2 (07:01→13:16)
--- NOTE | 2021-11-17 07:25 | PCM.PN.HOSP ---
Subjective Subjective Patient oxygen requirement increasing currently on 8 L flow per minute. Repeat chest x-ray obtained last evening demonstrated worsening bilateral infiltrate. An order has been given for patient to undergo COVID screening with PCR Objective Data Objective Data Vital Signs: Vital Signs Temp Pulse Resp BP Pulse Ox 98.9 F 77 18 136/56 H 92 11/17/21 01:13 11/17/21 07:01 11/17/21 07:01 11/17/21 01:13 11/17/21 07:01 Oxygen Flow Rate (L/min) 8 Oxygen Delivery Method Nasal Cannula Weight: 82.4 kg Body Mass Index (BMI) 30.7 Intake & Output: Intake and Output for Last 24 Hours 11/15/21 11/16/21 11/17/21 23:59 23:59 23:59 Intake Total 1680 / 1920 1000 / 1000 100 / 100 Balance 1680 / 1920 1000 / 1000 100 / 100 Medical Nutrition Assessment Dietitian: Malnutrition Criteria Met Start: 11/15/21 10:46 Freq: Status: Active Protocol: Document 11/15/21 10:46 DWAINE (Rec: 11/15/21 10:46 DWAINE [id number]) Nutrition Malnutrition Evidence of Malnutrition Exists Yes Malnutrition (severe): Acute Illness/Injury Evidenced By Suboptimal Energy Intake ( Severe),Weight Loss (Severe) Clinical Problem Acute Disease or Injury Related Malnutrition Etiology related to acute illness and inability to consume adequate nutrition to meet est nutritional needs Signs/Symptoms as evidenced by 6.1% wt loss and <50% po intake x ~ 2 wks Status Active Problem Recommendation Dietitian Recommendations/Changes Will d/c ensure enlive and give ensure clear w/ medpass 4x/day Will provide fortified foods at meals for increased nutrition if consumed. Lab / Micro Data Result Diagrams: 11/17/21 05:08 11/17/21 05:08 Labs: Laboratory Results - last 24 hr 11/17/21 05:08: WBC 15.8 H, RBC 4.10 L, Hgb 12.8 L, Hct 36.8 L, MCV 89.8, MCH 31.2, MCHC 34.8, RDW Std Deviation 40.3, RDW Coeff of Una 12.2, Plt Count 298, MPV 9.9, Immature Gran % (Auto) 0.600, Neut % (Auto) 88.3 H, Lymph % (Auto) 3.6 L, [place] % (Auto) 6.6, Eos % (Auto) 0.6, Baso % (Auto) 0.3, Absolute Neuts (auto) 14.0 H, Absolute Lymphs (auto) 0.57 L, Nucleated RBC % 0 11/17/21 05:08: Sodium 131 L, Potassium 3.5, Chloride 98, Carbon Dioxide 24.0, Anion Gap 9, BUN 18, Creatinine 0.82, Estim Creat Clear Calc 57.15, Est GFR (MDRD) Af Amer 115, Est GFR (MDRD) Non-Af 95, BUN/Creatinine Ratio 22.0 H, Glucose 139 H, Calcium 8.6 Micro: Microbiology 11/14/21 20:25 Mucosa - Nasopharyngeal Respiratory Panel (PCR) - Final 11/14/21 22:00 Urine, Clean Catch Legionella Antigen - Final 11/14/21 22:00 Interface Orders Streptococcus pneumoniae Antigen (M - Final 11/14/21 18:27 Nasal Secretion SARS-CoV-2 & FLU Antigen (Rapid) - Final Rhythm Strip Rhythm Strip: poss afib (see ekg) Rate: 70 Ectopy: None Physical Exam Narrative GENERAL: dyspneic at rest HEENT: Atraumatic; EYES; Anicteric, Normal Conjunctiva NECK; supple, normal thyroid, RESPIRATORY: Diminished to auscultation CARDIOVASCULAR: Regular S1 S2, GI: soft, normoactive bowel sounds, : No Renal angle tenderness; EXTREMITIES: No edema, no clubbing, MUSCULOSKELETAL: no muscle wasting NEURO: Awake; no lateralizing signs. SKIN: No Rash PSYCH; Flat affect Assessment & Plan Assessment/Plan (1) Pneumonia: QUALIFIERS: Laterality: bilateral Lung location: unspecified part of lung Pneumonia type: due to unspecified organism Qualified Code(s): J18.9 - Pneumonia, unspecified organism (2) Hypoxemia: (3) Failure of outpatient treatment: PLAN: Patient is an 81-year-old gentleman presenting with 2-week history of persistent cough and progressive shortness of breath over the past couple of days. Chest x-ray obtained on admission demonstrated patchy bilateral pneumonia admitted to regular nursing floor where patient is currently being managed 1. Acute hypoxic respiratory failure ? Present on admission. This is secondary to patient bilateral pneumonia patient was placed on broad-spectrum antibiotic therapy as well as supplemental oxygen which is currently being titrated to keep saturation greater than 90. Patient still remains hypoxic and dyspneic at rest. Patient was on IV fluid this is being continued given 40 mg of IV Lasix for suspected fluid overload -11/16/2021: Patient seen still remains dyspneic at rest. Currently requiring 3 to 5 L flow per minute to maintain adequate saturation -11/17/2021; Patient oxygen requirement increasing currently on 8 L flow per minute. Repeat chest x-ray obtained last evening demonstrated worsening bilateral infiltrate. An order has been given for patient to undergo COVID screening with PCR. Consult was placed to pulmonary medicine. Also ordered CT of the chest to rule out VTE in view of patient elevated D-dimer. 2. Suspected congestive heart failure ? With preserved ejection fraction ordered a 2D echo patient placed on fluid restriction as well as diuretics in addition to management as described above 3. Hypokalemia ? Corrected per protocol subsequent monitoring with daily BMPs ordered 4. Class I obesity with BMI of 31.4 ? Weight loss advised 5. Leukocytosis ? Due to patient's underlying infection as well as recent steroid use monitoring with daily CBC 6. DVT prophylaxis ? SC Lovenox 7. Severe malnutrition - related to acute illness and inability to consume adequate nutrition to meet est nutritional needs as evidenced by 6.1% wt loss and <50% po intake x ~ 2 wks with treatment of Will d/c ensure enlive and give ensure clear w/ medpass 4x/day Will provide fortified foods at meals for increased nutrition if consumed. 8. Obstructive sleep apnea ? Per history patient currently does not use any PAP therapy at night Charges/Coding Visit Charges Inpatient E&M: 05249 [facility] Hosp L3
[2021-11-17 08:46] LABS: Base Excess 3 mmol/L (-2 to +2); Blood Gas Specimen Type ART; O2 Delivery Device Cannula; PO2 57 mmHG (75-100); SITE L Radial; SO2 92 % (95-99); Total Carbon Dioxide 27 mmol/L; pCO2 33.1 mmHg (35-45)
[2021-11-17 09:14] LABS: D-Dimer Quantitative (DVT/PE) 12.23 FEU/ug/m (0.27-0.49)
--- NOTE | 2021-11-17 09:22 | CT_ITS ---
STUDY: CTA CHEST REASON FOR EXAM: Male, 81 years old. ELEVATED DIMER. History of bibasilar pulmonary infiltrates. RADIATION DOSAGE (If Supplied By Facility): CTDIvol = ( 14.92 ) mGy, DLP = ( 506.34 ) mGycm TECHNIQUE: The examination was performed with the intravenous administration of IV 100mL Isovue-370. Post-processing of the angiographic images was performed, with multiplanar reformation and 3D reconstruction. Individualized dose optimization techniques were used for this CT. COMPARISON: Comparison is made with prior chest regressed dated 11/16/2021. FINDINGS: Normal enhancement of the main pulmonary artery and right and left pulmonary arteries. Normal enhancement of the bilateral peripheral pulmonary arteries. There is no demonstrated pulmonary embolism. Normal thoracic aorta and visualized great vessels. There is no demonstrated aortic dissection. There are calcifications of the coronary arteries. There are visualized mediastinal lymph nodes, which are within normal size limits, and with normal morphology. Normal hilar regions. Normal visualized trachea and bronchi. The lungs are well expanded. There is evidence of diffuse increased interstitial markings involving both lungs both the upper and lower lobes with evidence of subpleural blebs and multiple blebs within the pulmonary parenchyma. The largest bleb is seen in the anterior aspect of the left upper lobe and measures 5.9 cm x 4.9 cm. Findings are suggestive of diffuse interstitial fibrosis with the evidence of honeycombing. Normal pleura. Normal chest wall structures. There are degenerative changes of thoracic spine. Heterogeneous appearance of the thoracic vertebrae. This may be suggestive of a demineralization. Small hiatal hernia. CT/CTA Chest W/WO Contrast IMPRESSION: No evidence of pulmonary embolism. Findings suggestive of chronic interstitial fibrosis and honeycombing involving both lungs both upper and lower lobes worse in the lower lobes. Electronically Signed: Ky Aj MD at 10:24 EDT ,
--- NOTE | 2021-11-17 09:45 | NURSING ---
pt to ct scan
--- NOTE | 2021-11-17 09:49 | ECHOD_ITS ---
Reason For Study: DYSPNEA/SOB Procedure This was a 2D Doppler, Color Flow transthoracic echocardiogram. The study was technically difficult. Exam performed portable in patient room. Left Ventricle Normal LV size. Mild concentric left ventricular hypertrophy. Left ventricular systolic function is normal. The estimated ejection fraction is 65 %. Diastolic function is indeterminate. No regional wall motion abnormalities noted. Right Ventricle Normal RV size. Normal systolic function. Atria The left atrium is mildly enlarged. Normal right atrium. No doppler evidence for ASD. Mitral Valve There is no mitral annular calcification. Normal mitral valve. Trivial mitral valve insufficiency. Tricuspid Valve Normal tricuspid valve. Mild tricuspid valve insufficiency. Unable to estimate RV systolic pressure/pulmonary artery pressure due to technically difficult study. Aortic Valve Trisinus/trileaflet aortic valve. Mild diffuse aortic valve thickening. Mild (1+) aortic valve insufficiency. Pulmonic Valve The pulmonic valve is not well visualized. Great Vessels The aortic root is not well visualized. Pericardium/Pleural No pericardial effusion. MMode/2D Measurements & Calculations LVIDd: 4.6 cm IVSd: 1.3 cm LAV(MOD-bp): 62.7 ml LVIDs: 3.1 cm LVPWd: 1.3 cm LAV(MOD-bp) Indexed: 33.4 ml/m2 RVDd: 4.0 cm FS: 31.5 % LAV(MOD-sp2): 54.9 ml LAV(MOD-sp4): 64.7 ml SV(MOD-sp4): 48.3 ml SV(sp4-el): 52.7 ml LVAd ap4: 30.1 cm2 LVLd ap4: 7.9 cm EDV(MOD-sp4): 92.1 ml EDV(sp4-el): 97.6 ml LVAs ap4: 18.6 cm2 LVLs ap4: 6.5 cm ESV(MOD-sp4): 43.8 ml ESV(sp4-el): 44.9 ml EF(MOD-sp4): 52.4 % EF(sp4-el): 54.0 % LA dimension(2D): 4.6 cm Doppler Measurements & Calculations MV E max rylan: 56.7 cm/sec Lat Peak E' Rylan: 9.6 cm/sec Med Peak E' Rylan: 3.7 cm/sec MV A max rylan: 67.5 cm/sec E/E' lat: 5.9 E/E' med: 15.2 MV E/A: 0.84 Ao V2 max: 115.4 cm/sec AI max rylan: 430.8 cm/sec LV V1 max: 75.9 cm/sec Ao max P.3 mmHg AI max P.3 mmHg LV V1 max P.3 mmHg AI dec slope: 209.3 cm/sec2 AI P1/2t: 603.0 msec ECHO/Echo Complete Interpretation Summary The study was technically difficult. Left ventricular systolic function is normal. The estimated ejection fraction is 65 %. Mild concentric left ventricular hypertrophy. The left atrium is mildly enlarged. Trivial mitral valve insufficiency. Mild tricuspid valve insufficiency. Mild diffuse aortic valve thickening. Mild (1+) aortic valve insufficiency. Unable to estimate RV systolic pressure/pulmonary artery pressure due to techni cindy difficult study. Diastolic function is indeterminate. Ordering Physician: Jaylen Ayala Referring Physician: MD Rita Fransico Performed By: Joi Dasilva RCS
[2021-11-17] MEDS: Enoxaparin 40 MG/0.4 ML Syringe SC (10:18)
[2021-11-17] MEDS: Aspirin E.C. 81 MG Tablet PO (10:18)
[2021-11-17] MEDS: Furosemide 40 MG/4 ML Vial IV (10:18)
[2021-11-17] MEDS: Potassium Chloride Oral Tablet 20 MEQ PO ×2 (10:18→18:00)
[2021-11-17 11:48] LABS: BNP,B-Type NATRIURETIC PEPTIDE 128.6 pg/mL (0-100)
--- NOTE | 2021-11-17 12:28 | EX.PCM.CONCC ---
Assessment & Plan Assessment/Plan (1) Acute respiratory failure with hypoxemia: PLAN: RECOMMENDATIONS: 1. Broaden antimicrobials to include Zosyn. Check MRSA screen. 2. Continue bronchodilators and IV steroids. 3. Check ANCA, DERREK with reflex and CCP antibodies. 4. Wean supplemental oxygen as tolerated. Initiate heated high flow if needed. IMPRESSIONS: 1. Acute hypoxemic respiratory failure The patient was initially admitted to the hospital on November 14 in the setting of progressive dyspnea, cough and hypoxemia. There was initial concern for underlying community-acquired pneumonia. The patient was placed on antimicrobials. However, he continued to decompensate from a respiratory perspective. CTA chest was subsequently completed which demonstrated no evidence for pulmonary embolism. Nevertheless, there was evidence of significant interstitial disease with interstitial septal thickening with subpleural involvement and honeycomb formation along with traction bronchiectasis. All of these findings are certainly concerning for underlying idiopathic pulmonary fibrosis. Given the patient's clinical decompensation and normal ejection fraction on echocardiogram, I am going to broaden his antibiotics to include Zosyn. Will obtain MRSA screen and check procalcitonin. In addition, given that certain autoimmune conditions can precipitate interstitial disease, will check DERREK with reflex, CCP antibodies and ANCA. I did explain to the patient and his family that if this truly represents IPF that the disease is universally progressive. The patient will ultimately need to follow-up in the pulmonary medicine clinic, at which time, consideration can be given to the initiation of either pirfenidone or nintedanib. This note was generated with [employer] dictation software. It may contain incorrect words, spelling, and punctuation that were not noted in checking the note before signing. HPI Consult Data Date of Consult: 11/18/21 HPI Narrative Reason for Consultation: Acute hypoxemic respiratory failure HPI Narrative: The patient is an 81-year-old male, with a history as outlined below, who presented to the emergency department on November 14 with gradually worsening shortness of breath, cough and hypoxemia. On presentation to the emergency department, the patient was noted to be afebrile and hemodynamically stable. He was noted to be hypoxemic on room air. Initial laboratory evaluation revealed an elevated white blood cell count to 16,000. Chemistry profile was notable for a potassium of 3.3 and normal creatinine. Initial plain film chest x-ray demonstrated patchy bilateral pneumonia. The patient was initially placed on ceftriaxone, azithromycin and scheduled bronchodilators. He was admitted to the medical surgical floor for further management. Over the course of his hospitalization, the patient has developed worsening respiratory status. In light of this, a D-dimer was checked and found to be elevated. Therefore, a CTA chest was obtained which revealed significant bilateral interstitial disease with evidence of traction bronchiectasis and subpleural interstitial septal thickening with honeycomb formation. The patient denied any prior pulmonary diagnoses. He has never previously utilize supplemental oxygen at his baseline. He denies a history of any autoimmune conditions. He denies any recent exposures. 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 Surface echocardiogram demonstrated normal LV size and function with an ejection fraction of 65%. [facility] [place] Medical History (Updated 11/17/21 @ 13:[address] Austin Covarrubias DO) Former smoker Hearing loss, left Hearing loss, right Sleep apnea Home Medications aspirin [Halfprin] 81 mg PO DAILY 11/14/21 [History Last Taken Unknown] doxycycline hyclate 100 mg PO BID 11/14/21 [History Last Taken Unknown] multivitamin with iron [Multivitamins/Iron FC] 1 tab PO DAILY 11/14/21 [History Last Taken Unknown] Allergy/AdvReac Type Severity Reaction Status Date / Time No Known Allergies Allergy Verified 11/14/21 17:57 Family History (Updated 11/14/21 @ 19:[address] Maryam Rodriguez MD) Father Myocardial infarction Heart disease Hypertension Mother Dementia Surgical History History of appendectomy History of surgery on arm Hx of tonsillectomy S/P bilateral cataract extraction Social History (Updated 11/14/21 @ 19:[address] Maryam Rodriguez MD) household members: spouse housing: house Smoking Status: Former smoker how long ago did patient quit smoking: Quit ~ 10 yrs prior, smoked 1 ppd initially then trended to 2-3 cig/day. alcohol intake: current alcohol intake frequency: 0-2 drinks per day details: 1 cocktail with dinner daily. substance use type: does not use ROS Constitutional Constitutional: Reports fatigue and fever(s) Eyes Eyes: Denies blurry vision or change in vision ENT HEENT: Denies dizziness, dysphagia, epistaxis or headache(s) Cardiovascular Cardiovascular: Reports dyspnea Respiratory/Chest Respiratory/Chest: Reports cough and dyspnea Gastrointestinal Gastrointestinal: Denies abdominal pain, diarrhea, nausea or vomiting Genitourinary Genitourinary: Denies difficulty urinating Musculoskeletal Musculoskeletal: Denies arthralgias, back pain or joint pain Integumentary Integumentary: Denies lesions, rash or skin ulcer Neurologic Neurologic: Denies abnormal gait Psychiatric Psychiatric: Denies anxiety or depression Endocrine Endocrinology: Denies fatigue Hematologic/Lymphatic Hematologic/Lymphatic: Denies easy bleeding or easy bruising Physical Exam Const alert and oriented x3 General Appearance: cooperative HEENT normocephalic, head/scalp atraumatic and moist oral mucous membranes Eyes PERRL, EOMs intact bilaterally and conjunctivae normal Neck supple General: trachea midline Chest inspection of chest normal Resp Effort and Inspection: able to speak in complete sentences Auscultation: rales and diminished lung sounds Cardio regular rate and regular rhythm GI normal to inspection, nondistended, normoactive bowel sounds Extremity no clubbing, cyanosis or edema Skin no rashes or lesions noted Neuro CN's II-XII intact bilaterally, moves all extremities and no focal motor deficits Psych cooperative and affect normal Medical Records Data Medical Nutrition Assessment Dietitian: Malnutrition Criteria Met Start: 11/15/21 10:46 Freq: Status: Active Protocol: Document 11/15/21 10:46 [facility] (Rec: 11/15/21 10:46 [facility] [id number]) Nutrition Malnutrition Evidence of Malnutrition Exists Yes Malnutrition (severe): Acute Illness/Injury Evidenced By Suboptimal Energy Intake ( Severe),Weight Loss (Severe) Clinical Problem Acute Disease or Injury Related Malnutrition Etiology related to acute illness and inability to consume adequate nutrition to meet est nutritional needs Signs/Symptoms as evidenced by 6.1% wt loss and <50% po intake x ~ 2 wks Status Active Problem Recommendation Dietitian Recommendations/Changes Will d/c ensure enlive and give ensure clear w/ medpass 4x/day Will provide fortified foods at meals for increased nutrition if consumed. Lab / Micro Data Result Diagrams: 11/17/21 05:08 11/17/21 05:08 Labs: Laboratory Results - last 24 hr 11/17/21 05:08: WBC 15.8 H, RBC 4.10 L, Hgb 12.8 L, Hct 36.8 L, MCV 89.8, MCH 31.2, MCHC 34.8, RDW Std Deviation 40.3, RDW Coeff of Una 12.2, Plt Count 298, MPV 9.9, Immature Gran % (Auto) 0.600, Neut % (Auto) 88.3 H, Lymph % (Auto) 3.6 L, Beaver % (Auto) 6.6, Eos % (Auto) 0.6, Baso % (Auto) 0.3, Absolute Neuts (auto) 14.0 H, Absolute Lymphs (auto) 0.57 L, Nucleated RBC % 0 11/17/21 05:08: Sodium 131 L, Potassium 3.5, Chloride 98, Carbon Dioxide 24.0, Anion Gap 9, BUN 18, Creatinine 0.82, Estim Creat Clear Calc 57.15, Est GFR (MDRD) Af Amer 115, Est GFR (MDRD) Non-Af 95, BUN/Creatinine Ratio 22.0 H, Glucose 139 H, Calcium 8.6 11/17/21 05:08: B-Natriuretic Peptide 128.6 H 11/17/21 08:29: COVID-19 ([facility]) Not Detected 11/17/21 08:40: D-Dimer Quant (PE/DVT) 12.23 H* ABG Data ABG results: ABG 11/17/21 08:40 Specimen Type ART Sample Site L Radial pH 7.50 H Bicarbonate Actual 26.0 Total CO2 27 Base Excess 3 H O2 Saturation 92 L ABG pCO2 33.1 L ABG pO2 57 L O2 Delivery Device Cannula Liter Flow 8.0 Rhythm Strip Rhythm Strip: poss afib (see ekg) Rate: 70 Ectopy: None Radiology Impression Chest CTA 11/17/21 09:22 IMPRESSION: No evidence of pulmonary embolism. Findings suggestive of chronic interstitial fibrosis and honeycombing involving both lungs both upper and lower lobes worse in the lower lobes. Electronically Signed: Ky Aj MD at 10:24 EDT , Charges/Coding Visit Charges Inpatient E&M: 83922 Init Hosp L3
--- NOTE | 2021-11-17 12:39 | NURSING ---
called report to icu, son at bedside. pt transferred to icu bed 5
--- NOTE | 2021-11-17 13:50 | EKG12_ITS ---
Test Reason : ABN RHYTHM Blood Pressure : / mmHG Vent. Rate : 070 BPM Atrial Rate : 089 BPM P-R Int : 000 ms QRS Dur : 102 ms QT Int : 434 ms P-R-T Axes : 000 -23 -14 degrees QTc Int : 468 ms Sinus rhythm with 2nd degree A-V block (Mobitz I) with occasional Premature ventricular complexes Nonspecific ST and T wave abnormality Abnormal ECG When compared with ECG of 14-NOV-2021 18:19, Premature ventricular complexes are now Present Nonspecific T wave abnormality, worse in Anterolateral leads Confirmed by RAMONA ALLEN, JEANNETTE ([id number]), editor farm journal WIN ZAMORA ([id number]) on 11/23/2021 8:25:07 AM Referred By: MIMI Confirmed By:JEANNETTE GREENE MD
[2021-11-17 14:38] LABS: Rheumatoid Factor < 10.0 IU/mL (<15)
[2021-11-17 15:07] LABS: Procalcitonin 0.16 ng/mL (0.00-0.09)
[2021-11-17] MEDS: Ensure Clear 120 ML Liquid PO ×3 (15:08→21:08)
[2021-11-17 18:04] LABS: M R Staph aureus DNA By PCR Negative (Negative); Probe Check PASS; Specimen Processing Control PASS
--- NOTE | 2021-11-17 19:32 | CPS ---
Patient states that he does not want breathing treatments anymore because he has taken so many since he has been here and he does not feel like they are helping him breathe any better. He states that he does not feel any different after the breathing treatments and he thinks the treatments are messing up his voice. RT attempted to reeducate the patient on how the treatments are supposed to work and how they help and he still refused aerosol therapy at this time.
[2021-11-18] VITALS (30 sets, daily range): BP systolic 101–146; BP diastolic 58–98; PULSE 52–88; RESP 17–33; TEMP 36.3–36.6; O2SAT 88–99
--- NOTE | 2021-11-18 05:52 | PN.CC_ITS ---
Assessment & Plan Assessment/Plan (1) Acute respiratory failure with hypoxemia: PLAN: RECOMMENDATIONS: 1. Continue broad-spectrum antimicrobials for now. 2. Continue bronchodilators and IV steroids. Give 1 g of Solu-Medrol daily x3 days. 3. Await results of autoimmune work-up. 4. Wean FiO2 to maintain oxygen saturations at or above 90%. IMPRESSIONS: 1. Acute hypoxemic respiratory failure The patient was initially admitted to the hospital on November 14 in the setting of progressive dyspnea, cough and hypoxemia. There was initial concern for underlying community-acquired pneumonia. The patient was placed on antimicrobials. However, he continued to decompensate from a respiratory perspective. CTA chest was subsequently completed which demonstrated no evidence for pulmonary embolism. Nevertheless, there was evidence of signif icant interstitial disease with interstitial septal thickening with subpleural involvement and honeycomb formation along with traction bronchiectasis. All of these findings are certainly concerning for underlying idiopathic pulmonary fibrosis. In addition, given that certain autoimmune conditions can precipitate interstitial disease, will check DERREK with reflex, CCP antibodies and ANCA. I did explain to the patient and his family that if this truly represents IPF that the disease is universally progressive. The patient will ultimately need to follow-up in the pulmonary medicine clinic, at which time, consideration can be given to the initiation of either pirfenidone or nintedanib, depending on his hospital clinical course. This note was generated with [employer] dictation software. It may contain incorrect words, spelling, and punctuation that were not noted in checking the note before signing. Subjective Subjective The patient was seen and examined at the bedside this morning. Events from the last 24 hours have been reviewed. The patient is currently afebrile, hemodynamically stable and maintaining appropriate oxygen saturations on Airvo heated high flow with an FiO2 requirement of 72% and flow rate of 40 L/min. The patient is documented to be overall net +2.3 L for the hospitalization. The patient readily desaturates with any form of exertion. Objective Data Objective Data The patient's most recent lab work, culture data and imaging studies have all been personally reviewed. Surface echocardiogram demonstrated mild concentric LVH with an ejection fraction of 65%. COVID PCR was negative. MRSA screen was negative. Respiratory viral panel was negative. Strep and urine Legionella antigens were negative. Vital Signs: Vital Signs Temp Pulse Resp BP Pulse Ox 97.4 F L 88 22 H 105/65 91 11/18/21 00:00 11/18/21 05:33 11/18/21 05:33 11/18/21 04:00 11/18/21 05:33 Oxygen Flow Rate (L/min) 40 Oxygen Delivery Method Airvo Weight: 82.4 kg Body Mass Index (BMI) 30.7 Intake & Output: Intake and Output for Last 24 Hours 11/16/21 11/17/21 11/18/21 23:59 23:59 23:59 Intake Total 1000 / 1000 151.75 / 151.75 50 / 50 Output Total 875 / 875 Balance 1000 / 1000 -723.25 / -723.25 50 / 50 Medical Nutrition Assessment Dietitian: Malnutrition Criteria Met Start: 11/15/21 10:46 Freq: Status: Active Protocol: Document 11/15/21 10:46 [facility] (Rec: 11/15/21 10:46 [facility] [id number]) Nutrition Malnutrition Evidence of Malnutrition Exists Yes Malnutrition (severe): Acute Illness/Injury Evidenced By Suboptimal Energy Intake ( Severe),Weight Loss (Severe) Clinical Problem Acute Disease or Injury Related Malnutrition Etiology related to acute illness and inability to consume adequate nutrition to meet est nutritional needs Signs/Symptoms as evidenced by 6.1% wt loss and <50% po intake x ~ 2 wks Status Active Problem Recommendation Dietitian Recommendations/Changes Will d/c ensure enlive and give ensure clear w/ medpass 4x/day Will provide fortified foods at meals for increased nutrition if consumed. Lab / Micro Data Result Diagrams: 11/18/21 08:50 11/18/21 08:50 Labs: Laboratory Results - last 24 hr 11/17/21 05:08: Sodium 131 L, Potassium 3.5, Chloride 98, Carbon Dioxide 24.0, Anion Gap 9, BUN 18, Creatinine 0.82, Estim Creat Clear Calc 57.15, Est GFR (MDRD) Af Amer 115, Est GFR (MDRD) Non-Af 95, BUN/Creatinine Ratio 22.0 H, Glucose 139 H, Calcium 8.6 11/17/21 05:08: B-Natriuretic Peptide 128.6 H 11/17/21 08:29: COVID-19 ([place]) Not Detected 11/17/21 08:40: D-Dimer Quant (PE/DVT) 12.23 H* 11/17/21 14:15: Rheumatoid Factor < 10.0 11/17/21 14:15: Procalcitonin 0.16 H 11/17/21 14:15: MRSA (PCR) Negative Micro: Microbiology 11/14/21 18:27 Blood Culture (Wb) #2 - Right Wrist Blood Culture - Preliminary No growth in 48 hours. 11/14/21 18:10 Blood Culture (Wb) - Anticubital Right Blood Culture - Preliminary No growth in 48 hours. 11/14/21 20:25 Mucosa - Nasopharyngeal Respiratory Panel (PCR) - Final 11/14/21 22:00 Urine, Clean Catch Legionella Antigen - Final 11/14/21 22:00 Interface Orders Streptococcus pneumoniae Antigen (M - Final 11/14/21 18:27 Nasal Secretion SARS-CoV-2 & FLU Antigen (Rapid) - Final ABG Data ABG results: ABG 11/17/21 08:40 Specimen Type ART Sample Site L Radial pH 7.50 H Bicarbonate Actual 26.0 Total CO2 27 Base Excess 3 H O2 Saturation 92 L ABG pCO2 33.1 L ABG pO2 57 L O2 Delivery Device Cannula Liter Flow 8.0 Radiography Diagnostic Testing: Radiology Impression Chest CTA 11/17/21 09:22 IMPRESSION: No evidence of pulmonary embolism. Findings suggestive of chronic interstitial fibrosis and honeycombing involving both lungs both upper and lower lobes worse in the lower lobes. Electronically Signed: Ky Aj MD at 10:24 EDT , Echocardiogram 11/17/21 09:49 Interpretation Summary The study was technically difficult. Left ventricular systolic function is normal. The estimated ejection fraction is 65 %. Mild concentric left ventricular hypertrophy. The left atrium is mildly enlarged. Trivial mitral valve insufficiency. Mild tricuspid valve insufficiency. Mild diffuse aortic valve thickening. Mild (1+) aortic valve insufficiency. Unable to estimate RV systolic pressure/pulmonary artery pressure due to marck hnically difficult study. Diastolic function is indeterminate. Ordering Physician: Jaylen Ayala Referring Physician: MD Rita Fransico Performed By: Joi Dasilva RCS Rhythm Strip Rhythm Strip: poss afib (see ekg) Rate: 70 Ectopy: None Physical Exam Const alert and oriented x3 General Appearance: cooperative HEENT normocephalic, head/scalp atraumatic and moist oral mucous membranes Eyes PERRL, EOMs intact bilaterally and conjunctivae normal Neck supple General: trachea midline Chest inspection of chest normal Resp Effort and Inspection: tachypneic Auscultation: rales and diminished lung sounds Cardio regular rate and regular rhythm GI normal to inspection, nondistended, normoactive bowel sounds Extremity no clubbing, cyanosis or edema Skin no rashes or lesions noted Neuro CN's II-XII intact bilaterally, moves all extremities and no focal motor deficits Psych cooperative and affect normal Charges/Coding Visit Charges Inpatient E&M: 52038 Subs Hosp L3
--- NOTE | 2021-11-18 07:39 | PN.HOSP_ITS ---
Subjective Subjective Patient was transferred to the intensive care unit the day prior as a result of increasing work of breathing with significant hypoxia. CT of the chest obtained demonstrated Findings suggestive of chronic interstitial fibrosis and honeycombing involving both lungs both upper and lower lobes worse in the lower lobes.. Please on noninvasive ventilation Airvo. Case discussed with Dr. Covarrubias with pulmonary medicine/intensive care. Plan is to increase patient current steroid dose. His antibiotic therapy was also broadened. Objective Data Objective Data Vital Signs: Vital Signs Temp Pulse Resp BP Pulse Ox 97.4 F L 53 L 21 H 109/64 95 11/18/21 00:00 11/18/21 07:00 11/18/21 07:00 11/18/21 07:00 11/18/21 07:00 Oxygen Flow Rate (L/min) 40 Oxygen Delivery Method Airvo Weight: 65 kg Body Mass Index (BMI) 30.7 Intake & Output: Intake and Output for Last 24 Hours 11/16/21 11/17/21 11/18/21 23:59 23:59 23:59 Intake Total 1000 / 1000 151.75 / 151.75 50 / 50 Output Total 875 / 875 200 / 200 Balance 1000 / 1000 -723.25 / -723.25 -150 / -150 Medical Nutrition Assessment Dietitian: Malnutrition Criteria Met Start: 11/15/21 10:46 Freq: Status: Active Protocol: Document 11/15/21 10:46 DWAINE (Rec: 11/15/21 10:46 [email or web address] [id number]) Nutrition Malnutrition Evidence of Malnutrition Exists Yes Malnutrition (severe): Acute Illness/Injury Evidenced By Suboptimal Energy Intake ( Severe),Weight Loss (Severe) Clinical Problem Acute Disease or Injury Related Malnutrition Etiology related to acute illness and inability to consume adequate nutrition to meet est nutritional needs Signs/Symptoms as evidenced by 6.1% wt loss and <50% po intake x ~ 2 wks Status Active Problem Recommendation Dietitian Recommendations/Changes Will d/c ensure enlive and give ensure clear w/ medpass 4x/day Will provide fortified foods at meals for increased nutrition if consumed. Lab / Micro Data Result Diagrams: 11/18/21 08:50 11/18/21 08:50 Labs: Laboratory Results - last 24 hr 11/17/21 05:08: B-Natriuretic Peptide 128.6 H 11/17/21 08:29: COVID-19 ([place]) Not Detected 11/17/21 08:40: D-Dimer Quant (PE/DVT) 12.23 H* 11/17/21 14:15: Rheumatoid Factor < 10.0 11/17/21 14:15: Procalcitonin 0.16 H 11/17/21 14:15: MRSA (PCR) Negative Micro: Microbiology 11/14/21 18:27 Blood Culture (Wb) #2 - Right Wrist Blood Culture - Preliminary No growth in 48 hours. 11/14/21 18:10 Blood Culture (Wb) - Anticubital Right Blood Culture - Preliminary No growth in 48 hours. 11/14/21 20:25 Mucosa - Nasopharyngeal Respiratory Panel (PCR) - Final 11/14/21 22:00 Urine, Clean Catch Legionella Antigen - Final 11/14/21 22:00 Interface Orders Streptococcus pneumoniae Antigen (M - Final 11/14/21 18:27 Nasal Secretion SARS-CoV-2 & FLU Antigen (Rapid) - Final ABG Data ABG results: ABG 11/17/21 08:40 Specimen Type ART Sample Site L Radial pH 7.50 H Bicarbonate Actual 26.0 Total CO2 27 Base Excess 3 H O2 Saturation 92 L ABG pCO2 33.1 L ABG pO2 57 L O2 Delivery Device Cannula Liter Flow 8.0 Radiography Diagnostic Testing: Radiology Impression Chest CTA 11/17/21 09:22 IMPRESSION: No evidence of pulmonary embolism. Findings suggestive of chronic interstitial fibrosis and honeycombing involving both lungs both upper and lower lobes worse in the lower lobes. Electronically Signed: Ky Aj MD at 10:24 EDT , Echocardiogram 11/17/21 09:49 Interpretation Summary The study was technically difficult. Left ventricular systolic function is normal. The estimated ejection fraction is 65 %. Mild concentric left ventricular hypertrophy. The left atrium is mildly enlarged. Trivial mitral valve insufficiency. Mild tricuspid valve insufficiency. Mild diffuse aortic valve thickening. Mild (1+) aortic valve insufficiency. Unable to estimate RV systolic pressure/pulmonary artery pressure due to technically difficult study. Diastolic function is indeterminate. Ordering Physician: Jaylen Ayala Referring Physician: MD Rita Fransico Performed By: Joi Dasilva RCS Rhythm Strip Rhythm Strip: poss afib (see ekg) Rate: 70 Ectopy: None Physical Exam Narrative GENERAL: dyspneic at rest HEENT: Atraumatic; EYES; Anicteric, Normal Conjunctiva NECK; supple, normal thyroid, RESPIRATORY: Diminished to auscultation CARDIOVASCULAR: Regular S1 S2, GI: soft, normoactive bowel sounds, : No Renal angle tenderness; EXTREMITIES: No edema, no clubbing, MUSCULOSKELETAL: no muscle wasting NEURO: Awake; no lateralizing signs. SKIN: No Rash PSYCH; Flat affect Assessment & Plan Assessment/Plan (1) Pneumonia: QUALIFIERS: Laterality: bilateral Lung location: unspecified part of lung Pneumonia type: due to unspecified organism Qualified Code(s): J18.9 - Pneumonia, unspecified organism (2) Hypoxemia: (3) Failure of outpatient treatment: PLAN: Patient is an 81-year-old gentleman presenting with 2-week history of persistent cough and progressive shortness of breath over the past couple of days. Chest x-ray obtained on admission demonstrated patchy bilateral pneumonia admitted to regular nursing floor where patient is currently being managed 1. Acute hypoxic respiratory failure ? Present on admission. This is secondary to patient bilateral pneumonia patient was placed on broad-spectrum antibiotic therapy as well as supplemental oxygen which is currently being titrated to keep saturation greater than 90. Patient still remains hypoxic and dyspneic at rest. Patient was on IV fluid this is being continued given 40 mg of IV Lasix for suspected fluid overload -11/16/2021: Patient seen still remains dyspneic at rest. Currently requiring 3 to 5 L flow per minute to maintain adequate saturation -11/17/2021; Patient oxygen requirement increasing currently on 8 L flow per minute. Repeat chest x-ray obtained last evening demonstrated worsening bilateral infiltrate. An order has been given for patient to undergo COVID screening with PCR. Consult was placed to pulmonary medicine. Also ordered CT of the chest to rule out VTE in view of patient elevated D-dimer. ?11/18/2021; Patient was transferred to the intensive care unit the day prior as a result of increasing work of breathing with significant hypoxia. CT of the chest obtained demonstrated Findings suggestive of chronic interstitial fibrosis and honeycombing involving both lungs both upper and lower lobes worse in the lower lobes.. Please on noninvasive ventilation Airvo. Case discussed with Dr. Covarrubias with pulmonary medicine/intensive care. Plan is to increase patient current steroid dose. His antibiotic therapy was also broadened.. Case was also discussed with patient's daughter the day prior 2. Suspected congestive heart failure ? With preserved ejection fraction ordered a 2D echo patient placed on fluid restriction as well as diuretics in addition to management as described above -Acute congestive heart failure ruled out. 2D echo obtained demonstrated preserved ejection fraction. 3. Hypokalemia ? Corrected per protocol subsequent monitoring with daily BMPs ordered 4. Class I obesity with BMI of 31.4 ? Weight loss advised 5. Leukocytosis ? Due to patient's underlying infection as well as recent steroid use monitoring with daily CBC 6. DVT prophylaxis ? SC Lovenox 7. Severe malnutrition - related to acute illness and inability to consume adequate nutrition to meet est nutritional needs as evidenced by 6.1% wt loss and <50% po intake x ~ 2 wks with treatment of Will d/c ensure enlive and give ensure clear w/ medpass 4x/day Will provide fortified foods at meals for increased nutrition if consumed. 8. Obstructive sleep apnea ? Per history patient currently does not use any PAP therapy at night Charges/Coding Visit Charges Inpatient E&M: 74079 Subs Hosp L3
[2021-11-18 08:55] LABS: Absolute Lymphocyte Count 0.53 X10^3/uL (0.83-4.51); Absolute Neutrophil Count 15.5 X10^3/uL (2.0-7.7); Basophil# 0.03 X10^3/uL; Basophil% 0.2 % (0-1); Hematocrit 35.6 % (40-54); Hemoglobin 12.9 g/dL (13.0-16.5); Lymphocyte # 0.53 X10^3/ul (0.83-4.51); Lymphocyte % 3.2 % (19-41); Mean Corp Hgb Conc 36.2 g/dL (32-36); Mean Corpuscular Hgb 31.8 pg (27.0-32.0); Mean Corpuscular Volume 87.7 fL (80-94); Mean Platelet Vol. 9.7 fl (6.2-12.0); Monocyte# 0.34 X10^3/uL; Monocyte% 2.1 % (0-10); NRBC Flagged by Analyzer 0 % (0-5); Neutrophil # 15.54 X10^3/uL (2.7-7.7); Neutrophil % 94.1 % (47-70); POSITIVE DIFFERENTIAL YES; Platelet Count 305 K/mm3 (150-450); RBC Distribution Width CV 12.1 % (11.6-14.6); RBC Distribution Width SD 39.2 fl (35.1-43.9); Red Blood Count 4.06 M/mm3 (4.6-6.2); White Blood Count 16.5 K/mm3 (4.4-11.0)
[2021-11-18 08:56] LABS: Differential Indicated SCAN CRITERIA MET
--- NOTE | 2021-11-18 09:15 | CASEMGMT ---
RN LAKESHA NOTE: Participated in ICU inter-disciplinary rounds. and son present during rounds. Pt sitting up in recliner chair in room, alert/oriented. On Airvo. PT/OT on hold d/t high oxygen needs. RN LAKESHA will continue to follow. Chiara BSN RN CM
[2021-11-18 09:27] LABS: Anion Gap 9 (5-15); BUN 23 mg/dL (7-18); BUN/Creat Ratio 27.8 RATIO (10-20); Calcium,Total 8.8 mg/dL (8.5-10.1); Chloride 99 mmol/L (98-107); Creatinine, Serum 0.83 mg/dL (0.70-1.30); EST Glomerular Filtration Rate 94 mL/min (>60); Est Glom Filt Rate - Afr Amer 114 mL/min (>60); Estimated Creatinine Clearance 56.47 ml/min; Glucose 145 mg/dL (74-106); Sodium Level 135 mmol/L (136-145)
[2021-11-18] MEDS: Ensure Clear 120 ML Liquid PO ×4 (10:16→21:37)
[2021-11-18] MEDS: Potassium Chloride Oral Tablet 20 MEQ PO ×2 (10:16→17:07)
[2021-11-18] MEDS: Enoxaparin 40 MG/0.4 ML Syringe SC (10:17)
[2021-11-18] MEDS: Aspirin E.C. 81 MG Tablet PO (10:17)
--- NOTE | 2021-11-18 16:30 | CHAPLAIN ---
Type of Pastoral Visit _x__ Initial Visit ___ Follow-up Visit ___ On-call Visit ___ General Patient Visit ___ Spiritual Assessment ___ Family Conference ___ Bereavement ___ Rapid Response ___ Code Blue ___ Other (describe below) Pastoral Care Referral From ___ Patient _x__ Family _x__ Nurse ___ Physician ___ Grocery Packer ___ Burglar Alarm Operator ___ Other (describe below) Sacrament/Intervention _x__ Active listening ___ Anointing ___ Sikhism ___ Bereavement ___ Communion _x__ Sangita exploration ___ _x__ Life review _x__ Prayer ___ Reconciliation ___ Sacrament of Sick _x__ Supportive presence ___ Wedding ___ Other (describe below) Pastoral Comments met with patient and spouse and then later with other family in the waiting room; pt has new diagnosis; spouse is asking if proof coin collector can come; family will ask for proof coin collector and this approved by this biometrics head; presence and prayer given; offer of ongoing support
[2021-11-19] VITALS (21 sets, daily range): BP systolic 111–139; BP diastolic 55–78; PULSE 53–75; RESP 17–26; TEMP 36.3–36.7; O2SAT 91–98
[2021-11-19 05:47] LABS: Absolute Lymphocyte Count 0.57 X10^3/uL (0.83-4.51); Absolute Neutrophil Count 20.8 X10^3/uL (2.0-7.7); Basophil# 0.03 X10^3/uL; Basophil% 0.1 % (0-1); Hematocrit 36.8 % (40-54); Lymphocyte # 0.57 X10^3/ul (0.83-4.51); Lymphocyte % 2.6 % (19-41); Mean Corp Hgb Conc 35.3 g/dL (32-36); Mean Corpuscular Hgb 31.6 pg (27.0-32.0); Mean Corpuscular Volume 89.5 fL (80-94); Mean Platelet Vol. 9.9 fl (6.2-12.0); Monocyte# 0.57 X10^3/uL; Monocyte% 2.6 % (0-10); NRBC Flagged by Analyzer 0 % (0-5); Neutrophil # 20.81 X10^3/uL (2.7-7.7); POSITIVE DIFFERENTIAL YES; Platelet Count 345 K/mm3 (150-450); RBC Distribution Width CV 11.9 % (11.6-14.6); RBC Distribution Width SD 38.6 fl (35.1-43.9); Red Blood Count 4.11 M/mm3 (4.6-6.2); White Blood Count 22.1 K/mm3 (4.4-11.0)
--- NOTE | 2021-11-19 05:49 | PN.CC_ITS ---
Assessment & Plan Assessment/Plan (1) Acute respiratory failure with hypoxemia: PLAN: RECOMMENDATIONS: 1. Continue broad-spectrum antimicrobials for now. 2. Continue bronchodilators and IV steroids. Give 1 g of Solu-Medrol daily until tomorrow. 3. Await results of autoimmune work-up. 4. Wean FiO2 to maintain oxygen saturations at or above 90%. 5. If no meaningful improvement is noted in the patient's respiratory status in the next 24 hours, consider hospice care referral. IMPRESSIONS: 1. Acute hypoxemic respiratory failure The patient was initially admitted to the hospital on November 14 in the setting of progressive dyspnea, cough and hypoxemia. There was initial concern for underlying community-acquired pneumonia. The patient was placed on antimicrobials. However, he continued to decompensate from a respiratory perspective. CTA chest was subsequently completed which demonstrated no evidence for pulmonary embolism. Nevertheless, there was evidence of significant interstitial disease with interstitial septal thickening with subpleural involvement and honeycomb formation along with traction bronchiectasis. All of these findings are certainly concerning for underlying idiopathic pulmonary fibrosis. In addition, given that certain autoimmune conditions can precipitate interstitial disease, will check DERREK with reflex, CCP antibodies and ANCA. I did explain to the patient and his family that if this truly represents IPF that the disease is universally progressive. CODE status: Discussed CODE status at length including difference between FULL code, DNR-CCA and DNR-CC status. Following discussions about the differences in these status, patient requested DNR CCA- DNI CODE STATUS. Advanced Care Planning Face to Face Time: 20 minutes This note was generated with [employer] dictation software. It may contain incorrect words, spelling, and punctuation that were not noted in checking the note before signing. Subjective Subjective The patient was seen and examined at the bedside this morning. Events from the last 24 hours have been reviewed. The patient is currently afebrile, hemodynamically stable and maintaining appropriate oxygen saturations on Airvo heated high flow with an FiO2 requirement of 55% and flow rate of 40 L/min. The patient is currently documented to be overall net +2.4 L for the hospitalization. I did personally meet with the patient and his family and spoke at length regarding the pathogenesis and prognosis of idiopathic pulmonary fibrosis. Following my discussion, and after reviewing options for CODE STATUS, the patient elected to update his status to DNR CCA without intubation. If the patient does not begin to show any sign of improvement from a respiratory perspective in the next 24 hours, they did voice an interest in pursuing hospice care referral. Objective Data Objective Data The patient's most recent lab work, culture data and imaging studies have all been personally reviewed. Surface echocardiogram demonstrated mild concentric LVH with an ejection fraction of 65%. COVID PCR was negative. MRSA screen was negative. Respiratory viral panel was negative. Strep and urine Legionella antigens were negative. Vital Signs: Vital Signs Temp Pulse Resp BP Pulse Ox 97.6 F L 62 21 H 127/62 H 92 11/19/21 00:00 11/19/21 04:00 11/19/21 03:00 11/19/21 03:00 11/19/21 03:00 Oxygen Flow Rate (L/min) 40 Oxygen Delivery Method Airvo Weight: 83.7 kg Body Mass Index (BMI) 30.7 Intake & Output: Intake and Output for Last 24 Hours 11/17/21 11/18/21 11/19/21 23:59 23:59 23:59 Intake Total 151.75 / 151.75 306.75 / 306.75 50 / 50 Output Total 875 / 875 200 / 200 Balance -723.25 / -723.25 106.75 / 106.75 50 / 50 Medical Nutrition Assessment Dietitian: Malnutrition Criteria Met Start: 11/15/21 10:46 Freq: Status: Active Protocol: Document 11/18/21 11:35 AG (Rec: 11/18/21 11:35 [id number]) Nutrition Malnutrition Evidence of Malnutrition Exists Yes Malnutrition (severe): Acute Illness/Injury Evidenced By Suboptimal Energy Intake ( Severe),Weight Loss (Severe) Clinical Problem Acute Disease or Injury Related Malnutrition Etiology severe, acute malnutrition related to inadequate energy intake w/ onset of acute illness Signs/Symptoms as evidenced by unintentional wt loss of 5.9kg/6.5% x 2 weeks; estimated PO intake meeting <50% of estimated energy needs >5 days Status Active Problem Recommendation Dietitian Recommendations/Changes continue regular diet w/ fortified foods and 120mL ensure clear 4x/day w/ medpass due to malnutrition Lab / Micro Data Attestation: I reviewed the patient's lab results. Result Diagrams: 11/19/21 05:35 11/19/21 05:35 Labs: Laboratory Results - last 24 hr 11/18/21 08:50: WBC 16.5 H, RBC 4.06 L, Hgb 12.9 L, Hct 35.6 L, MCV 87.7, MCH 31.8, MCHC 36.2 H, RDW Std Deviation 39.2, RDW Coeff of Una 12.1, Plt Count 305, MPV 9.7, Immature Gran % (Auto) 0.400, Neut % (Auto) 94.1 H, Lymph % (Auto) 3.2 L, [place] % (Auto) 2.1, Eos % (Auto) 0.0, Baso % (Auto) 0.2, Absolute Neuts (auto) 15.5 H, Absolute Lymphs (auto) 0.53 L, Nucleated RBC % 0 11/18/21 08:50: Sodium 135 L, Potassium 4.0, Chloride 99, Carbon Dioxide 27.0, Anion Gap 9, BUN 23 H, Creatinine 0.83, Estim Creat Clear Calc 56.47, Est GFR (MDRD) Af Amer 114, Est GFR (MDRD) Non-Af 94, BUN/Creatinine Ratio 27.8 H, Glucose 145 H, Calcium 8.8 Micro: Microbiology 11/18/21 10:05 Sputum, Expectorated/Coughed Gram Stain - Final 11/14/21 18:27 Blood Culture (Wb) #2 - Right Wrist Blood Culture - Preliminary No growth in 48 hours. 11/14/21 18:10 Blood Culture (Wb) - Anticubital Right Blood Culture - Preliminary No growth in 48 hours. 11/14/21 20:25 Mucosa - Nasopharyngeal Respiratory Panel (PCR) - Final 11/14/21 22:00 Urine, Clean Catch Legionella Antigen - Final 11/14/21 22:00 Interface Orders Streptococcus pneumoniae Antigen (M - Final 11/14/21 18:27 Nasal Secretion SARS-CoV-2 & FLU Antigen (Rapid) - Final Rhythm Strip Rhythm Strip: poss afib (see ekg) Rate: 70 Ectopy: None Physical Exam Const alert and oriented x3 General Appearance: cooperative HEENT normocephalic, head/scalp atraumatic and moist oral mucous membranes General Ear: hearing grossly impaired Eyes PERRL, EOMs intact bilaterally and conjunctivae normal Neck supple General: trachea midline Chest inspection of chest normal Resp Effort and Inspection: tachypneic Auscultation: rales and diminished lung sounds Cardio regular rate and regular rhythm GI normal to inspection, nondistended, normoactive bowel sounds Extremity no clubbing, cyanosis or edema Skin no rashes or lesions noted Neuro CN's II-XII intact bilaterally, moves all extremities and no focal motor deficits Psych cooperative and affect normal Charges/Coding Visit Charges Inpatient E&M: 79959 [facility] Hosp L3 Procedures Hospitalists Procedures: 43913 Advncd Care Plan 30 Min
[2021-11-19 05:52] LABS: Differential Indicated SCAN CRITERIA MET
[2021-11-19 06:06] LABS: AST(SGOT) 48 U/L (15-37); Alanine Aminotransfer ALT/SGPT 57 U/L (16-61); Albumin, Serum 2.5 g/dL (3.2-5.0); Alkaline Phosphatase 74 U/L (45-117); Anion Gap 8 (5-15); BUN 26 mg/dL (7-18); BUN/Creat Ratio 28.8 RATIO (10-20); Bilirubin, Direct 0.18 mg/dL (0.00-0.30); Calcium,Total 8.9 mg/dL (8.5-10.1); Chloride 99 mmol/L (98-107); EST Glomerular Filtration Rate 85 mL/min (>60); Est Glom Filt Rate - Afr Amer 103 mL/min (>60); Estimated Creatinine Clearance 52.07 ml/min; Glucose 157 mg/dL (74-106); Magnesium 2.2 mg/dL (1.6-2.6); Potassium 3.9 mmol/L (3.5-5.1); Protein, Total 6.5 g/dL (6.4-8.2); Sodium Level 134 mmol/L (136-145)
--- NOTE | 2021-11-19 07:20 | PCM.PN.HOSP ---
Subjective Subjective Patient seen remains in ICU on high flow oxygen. Patient CODE STATUS was changed from full code to DNR CC. Patient has elevated WBC count as well as glucose this is as a result of patient receiving high-dose steroids Objective Data Objective Data Vital Signs: Vital Signs Temp Pulse Resp BP Pulse Ox 97.6 F L 63 22 H 137/78 H 93 11/19/21 00:00 11/19/21 06:00 11/19/21 06:00 11/19/21 06:00 11/19/21 06:00 Oxygen Flow Rate (L/min) 40 Oxygen Delivery Method Airvo Weight: 83.7 kg Body Mass Index (BMI) 30.7 Intake & Output: Intake and Output for Last 24 Hours 11/17/21 11/18/21 11/19/21 23:59 23:59 23:59 Intake Total 151.75 / 151.75 306.75 / 306.75 50 / 50 Output Total 875 / 875 200 / 200 Balance -723.25 / -723.25 106.75 / 106.75 50 / 50 Medical Nutrition Assessment Dietitian: Malnutrition Criteria Met Start: 11/15/21 10:46 Freq: Status: Active Protocol: Document 11/18/21 11:35 AG (Rec: 11/18/21 11:35 AG [id number]) Nutrition Malnutrition Evidence of Malnutrition Exists Yes Malnutrition (severe): Acute Illness/Injury Evidenced By Suboptimal Energy Intake ( Severe),Weight Loss (Severe) Clinical Problem Acute Disease or Injury Related Malnutrition Etiology severe, acute malnutrition related to inadequate energy intake w/ onset of acute illness Signs/Symptoms as evidenced by unintentional wt loss of 5.9kg/6.5% x 2 weeks; estimated PO intake meeting <50% of estimated energy needs >5 days Status Active Problem Recommendation Dietitian Recommendations/Changes continue regular diet w/ fortified foods and 120mL ensure clear 4x/day w/ medpass due to malnutrition Lab / Micro Data Result Diagrams: 11/19/21 05:35 11/19/21 05:35 Labs: Laboratory Results - last 24 hr 11/18/21 08:50: WBC 16.5 H, RBC 4.06 L, Hgb 12.9 L, Hct 35.6 L, MCV 87.7, MCH 31.8, MCHC 36.2 H, RDW Std Deviation 39.2, RDW Coeff of Una 12.1, Plt Count 305, MPV 9.7, Immature Gran % (Auto) 0.400, Neut % (Auto) 94.1 H, Lymph % (Auto) 3.2 L, [place] % (Auto) 2.1, Eos % (Auto) 0.0, Baso % (Auto) 0.2, Absolute Neuts (auto) 15.5 H, Absolute Lymphs (auto) 0.53 L, Nucleated RBC % 0 11/18/21 08:50: Sodium 135 L, Potassium 4.0, Chloride 99, Carbon Dioxide 27.0, Anion Gap 9, BUN 23 H, Creatinine 0.83, Estim Creat Clear Calc 56.47, Est GFR (MDRD) Af Amer 114, Est GFR (MDRD) Non-Af 94, BUN/Creatinine Ratio 27.8 H, Glucose 145 H, Calcium 8.8 11/19/21 05:35: WBC 22.1 H, RBC 4.11 L, Hgb 13.0, Hct 36.8 L, MCV 89.5, MCH 31.6, MCHC 35.3, RDW Std Deviation 38.6, RDW Coeff of Una 11.9, Plt Count 345, MPV 9.9, Immature Gran % (Auto) 0.700, Neut % (Auto) 94.0 H, Lymph % (Auto) 2.6 L, [place] % (Auto) 2.6, Eos % (Auto) 0.0, Baso % (Auto) 0.1, Absolute Neuts (auto) 20.8 H, Absolute Lymphs (auto) 0.57 L, Nucleated RBC % 0 11/19/21 05:35: Sodium 134 L, Potassium 3.9, Chloride 99, Carbon Dioxide 27.0, Anion Gap 8, BUN 26 H, Creatinine 0.90, Estim Creat Clear Calc 52.07, Est GFR (MDRD) Af Amer 103, Est GFR (MDRD) Non-Af 85, BUN/Creatinine Ratio 28.8 H, Glucose 157 H, Calcium 8.9, Magnesium 2.2, Total Bilirubin 0.70, Direct Bilirubin 0.18, AST 48 H, ALT 57, Alkaline Phosphatase 74, Total Protein 6.5, Albumin 2.5 L, Globulin 4.0 Micro: Microbiology 11/18/21 10:05 Sputum, Expectorated/Coughed Gram Stain - Final 05/01/22 18:27 Blood Culture (Wb) #2 - Right Wrist Blood Culture - Preliminary No growth in 48 hours. 11/14/21 18:10 Blood Culture (Wb) - Anticubital Right Blood Culture - Preliminary No growth in 48 hours. 11/14/21 20:25 Mucosa - Nasopharyngeal Respiratory Panel (PCR) - Final 11/14/21 22:00 Urine, Clean Catch Legionella Antigen - Final 11/14/21 22:00 Interface Orders Streptococcus pneumoniae Antigen (M - Final 11/14/21 18:27 Nasal Secretion SARS-CoV-2 & FLU Antigen (Rapid) - Final Rhythm Strip Rhythm Strip: poss afib (see ekg) Rate: 70 Ectopy: None Physical Exam Narrative GENERAL: dyspneic at rest HEENT: Atraumatic; EYES; Anicteric, Normal Conjunctiva NECK; supple, normal thyroid, RESPIRATORY: Diminished to auscultation CARDIOVASCULAR: Regular S1 S2, GI: soft, normoactive bowel sounds, : No Renal angle tenderness; EXTREMITIES: No edema, no clubbing, MUSCULOSKELETAL: no muscle wasting NEURO: Awake; no lateralizing signs. SKIN: No Rash PSYCH; Flat affect Assessment & Plan Assessment/Plan (1) Pneumonia: QUALIFIERS: Laterality: bilateral Lung location: unspecified part of lung Pneumonia type: due to unspecified organism Qualified Code(s): J18.9 - Pneumonia, unspecified organism (2) Hypoxemia: (3) Failure of outpatient treatment: PLAN: Patient is an 81-year-old gentleman presenting with 2-week history of persistent cough and progressive shortness of breath over the past couple of days. Chest x-ray obtained on admission demonstrated patchy bilateral pneumonia admitted to regular nursing floor where patient is currently being managed 1. Acute hypoxic respiratory failure ? Present on admission. This is secondary to patient bilateral pneumonia patient was placed on broad-spectrum antibiotic therapy as well as supplemental oxygen which is currently being titrated to keep saturation greater than 90. Patient still remains hypoxic and dyspneic at rest. Patient was on IV fluid this is being continued given 40 mg of IV Lasix for suspected fluid overload -11/16/2021: Patient seen still remains dyspneic at rest. Currently requiring 3 to 5 L flow per minute to maintain adequate saturation -11/17/2021; Patient oxygen requirement increasing currently on 8 L flow per minute. Repeat chest x-ray obtained last evening demonstrated worsening bilateral infiltrate. An order has been given for patient to undergo COVID screening with PCR. Consult was placed to pulmonary medicine. Also ordered CT of the chest to rule out VTE in view of patient elevated D-dimer. ?11/18/2021; Patient was transferred to the intensive care unit the day prior as a result of increasing work of breathing with significant hypoxia. CT of the chest obtained demonstrated Findings suggestive of chronic interstitial fibrosis and honeycombing involving both lungs both upper and lower lobes worse in the lower lobes.. Please on noninvasive ventilation Airvo. Case discussed with Dr. Covarrubias with pulmonary medicine/intensive care. Plan is to increase patient current steroid dose. His antibiotic therapy was also broadened.. Case was also discussed with patient's daughter the day prior ? 11/19/2021; Patient seen remains in ICU on high flow oxygen. Patient CODE STATUS was changed from full code to DNR CC. Patient has elevated WBC count as well as glucose this is as a result of patient receiving high-dose steroids 2. Suspected congestive heart failure ? With preserved ejection fraction ordered a 2D echo patient placed on fluid restriction as well as diuretics in addition to management as described above -Acute congestive heart failure ruled out. 2D echo obtained demonstrated preserved ejection fraction. 3. Hypokalemia ? Corrected per protocol subsequent monitoring with daily BMPs ordered 4. Class I obesity with BMI of 31.4 ? Weight loss advised 5. Leukocytosis ? Due to patient's underlying infection as well as recent steroid use monitoring with daily CBC 6. Severe malnutrition - related to acute illness and inability to consume adequate nutrition to meet est nutritional needs as evidenced by 6.1% wt loss and <50% po intake x ~ 2 wks with treatment of Will d/c ensure enlive and give ensure clear w/ medpass 4x/day Will provide fortified foods at meals for increased nutrition if consumed. 7. Obstructive sleep apnea ? Per history patient currently does not use any PAP therapy at night 8. DVT prophylaxis ? SC Lovenox Charges/Coding Visit Charges Inpatient E&M: 60868 Subs Hosp L2
[2021-11-19] MEDS: Ensure Clear 120 ML Liquid PO ×4 (09:27→21:07)
[2021-11-19] MEDS: Aspirin E.C. 81 MG Tablet PO (09:27)
[2021-11-19] MEDS: Enoxaparin 40 MG/0.4 ML Syringe SC (09:28)
[2021-11-19] MEDS: Potassium Chloride Oral Tablet 20 MEQ PO ×2 (09:28→16:32)
--- NOTE | 2021-11-19 09:35 | CASEMGMT ---
Addendum entered by Sapna Hodge 11/19/21 13:34: Social Work Follow up phone call to [facility] at 1130 and 1330 for update. Toya states that [facility] has left a VM for pt Ita and they are awaiting a return call to set up a meeting. Pt currently not at the hospital. Nursing updated. JEFFREY Hastings Original Note: Social Work SW spoke with Dr. Covarrubias who states family is requesting hospice consultation with goal of taking pt home with hospice services. SW met with pt, pt Ita and dgt who confirm they would like to speak with hospice and SW explained referral process. Phone call to [facility] and referral made to Toya. Clinical information faxed. [facility] will call pt Ita and set up an appointment time today. Nursing updated. JEFFREY Hastings
[2021-11-19 20:01] LABS: ANTINUCLEAR ANTIBODIES DIRECT Negative (Negative)
[2021-11-19] MEDS: MELATONIN 3 MG TABLET PO (21:17)
[2021-11-19] MEDS: 0.9% Saline Lock 10 ML Syringe IV (22:00)
[2021-11-20] VITALS (13 sets, daily range): BP systolic 99–131; BP diastolic 49–82; PULSE 51–87; RESP 19–24; TEMP 36.4–36.9; O2SAT 92–96
[2021-11-20 00:07] LABS: Cytoplasmic Ab (C-ANCA) <1:20 titer (Neg:<1:20)
[2021-11-20] MEDS: 0.9% Saline Lock 10 ML Syringe IV (04:00)
[2021-11-20 04:02] LABS: Absolute Lymphocyte Count 0.47 X10^3/uL (0.83-4.51); Absolute Neutrophil Count 18.8 X10^3/uL (2.0-7.7); Basophil# 0.02 X10^3/uL; Basophil% 0.1 % (0-1); Hematocrit 33.9 % (40-54); Hemoglobin 11.9 g/dL (13.0-16.5); Lymphocyte # 0.47 X10^3/ul (0.83-4.51); Lymphocyte % 2.3 % (19-41); Mean Corp Hgb Conc 35.1 g/dL (32-36); Mean Corpuscular Hgb 31.3 pg (27.0-32.0); Mean Corpuscular Volume 89.2 fL (80-94); Mean Platelet Vol. 9.8 fl (6.2-12.0); Monocyte# 0.65 X10^3/uL; Monocyte% 3.2 % (0-10); NRBC Flagged by Analyzer 0 % (0-5); Neutrophil # 18.77 X10^3/uL (2.7-7.7); Neutrophil % 93.7 % (47-70); POSITIVE DIFFERENTIAL YES; Platelet Count 330 K/mm3 (150-450); RBC Distribution Width CV 11.9 % (11.6-14.6); RBC Distribution Width SD 38.7 fl (35.1-43.9); White Blood Count 20.1 K/mm3 (4.4-11.0)
[2021-11-20 04:13] LABS: Differential Indicated SCAN CRITERIA MET
[2021-11-20 04:29] LABS: Anion Gap 6 (5-15); BUN 29 mg/dL (7-18); Calcium,Total 8.3 mg/dL (8.5-10.1); Chloride 104 mmol/L (98-107); Creatinine, Serum 0.85 mg/dL (0.70-1.30); EST Glomerular Filtration Rate 91 mL/min (>60); Est Glom Filt Rate - Afr Amer 110 mL/min (>60); Estimated Creatinine Clearance 55.14 ml/min; Glucose 147 mg/dL (74-106); Potassium 4.3 mmol/L (3.5-5.1); Sodium Level 138 mmol/L (136-145)
--- NOTE | 2021-11-20 05:45 | PCM.PN.INT ---
Assessment & Plan Assessment/Plan (1) Acute respiratory failure with hypoxemia: PLAN: RECOMMENDATIONS: 1. Continue broad-spectrum antimicrobials for now. 2. High-dose steroids x3 days. 3. Await results of autoimmune work-up. 4. Wean FiO2 to maintain oxygen saturations at or above 90%. 5. Tentative plans for discharge home today with hospice care services. IMPRESSIONS: 1. Acute hypoxemic respiratory failure The patient was initially admitted to the hospital on November 14 in the setting of progressive dyspnea, cough and hypoxemia. There was initial concern for underlying community-acquired pneumonia. The patient was placed on antimicrobials. However, he continued to decompensate from a respiratory perspective. CTA chest was subsequently completed which demonstrated no evidence for pulmonary embolism. Nevertheless, there was evidence of significant interstitial disease with interstitial septal thickening with subpleural involvement and honeycomb formation along with traction bronchiectasis. All of these findings are certainly concerning for underlying idiopathic pulmonary fibrosis. In addition, given that certain autoimmune conditions can precipitate interstitial disease, will check DERREK with reflex, CCP antibodies and ANCA. I did explain to the patient and his family that if this truly represents IPF that the disease is universally progressive. Given the patient's lack of improvement with high-dose steroids and supportive measures, the decision was made to pursue hospice care services. This note was generated with [employer] dictation software. It may contain incorrect words, spelling, and punctuation that were not noted in checking the note before signing. Subjective Subjective The patient was seen and examined at the bedside this morning. Events from the last 24 hours have been reviewed. The patient is currently afebrile, hemodynamically stable and maintaining appropriate oxygen saturations on 8 L high flow nasal cannula. The patient is currently documented to be overall net +2.7 L for the hospitalization. The patient was given melatonin last night and appears to be resting comfortably this morning. Per nursing staff, he readily desaturates with any form of exertion and requires 15 L/min when this occurs. The patient is tentatively being prepared for discharge today with home hospice care service. Objective Data Objective Data The patient's most recent lab work, culture data and imaging studies have all been personally reviewed. Surface echocardiogram demonstrated mild concentric LVH with an ejection fraction of 65%. COVID PCR was negative. MRSA screen was negative. Respiratory viral panel was negative. Strep and urine Legionella antigens were negative. Vital Signs: Vital Signs Temp Pulse Resp BP Pulse Ox 98.5 F 58 L 20 H 101/49 L 95 11/20/21 01:30 11/20/21 03:00 11/20/21 01:30 11/20/21 01:30 11/20/21 01:30 Oxygen Flow Rate (L/min) 8 Oxygen Delivery Method High Flow Weight: 81.7 kg Body Mass Index (BMI) 30.7 Intake & Output: Intake and Output for Last 24 Hours 11/18/21 11/19/21 11/20/21 23:59 23:59 23:59 Intake Total 306.75 / 306.75 958 / 958 109.5 / 109.5 Output Total 200 / 200 700 / 700 Balance 106.75 / 106.75 258 / 258 109.5 / 109.5 Medical Nutrition Assessment Dietitian: Malnutrition Criteria Met Start: 11/15/21 10:46 Freq: Status: Active Protocol: Document 11/18/21 11:35 AG (Rec: 11/18/21 11:35 [id number]) Nutrition Malnutrition Evidence of Malnutrition Exists Yes Malnutrition (severe): Acute Illness/Injury Evidenced By Suboptimal Energy Intake ( Severe),Weight Loss (Severe) Clinical Problem Acute Disease or Injury Related Malnutrition Etiology severe, acute malnutrition related to inadequate energy intake w/ onset of acute illness Signs/Symptoms as evidenced by unintentional wt loss of 5.9kg/6.5% x 2 weeks; estimated PO intake meeting <50% of estimated energy needs >5 days Status Active Problem Recommendation Dietitian Recommendations/Changes continue regular diet w/ fortified foods and 120mL ensure clear 4x/day w/ medpass due to malnutrition Lab / Micro Data Attestation: I reviewed the patient's lab results. Result Diagrams: 11/20/21 03:50 11/20/21 03:50 Labs: Laboratory Results - last 24 hr 11/17/21 14:15: DERREK Screen Negative, KYLE-1 Antibody Not Reportable, SS-A/Ro IgG Antibody Not Reportable, SS-B/La IgG Antibody Not Reportable, Sm (Carter) Antibody Not Reportable, ASSEMBLY ROOM SUPERVISOR Antibody Not Reportable, Scl-70 Scleroderma Ab Not Reportable, Double Strand DNA Ab Not Reportable, Centromere B Antibody Not Reportable 11/19/21 05:35: WBC 22.1 H, RBC 4.11 L, Hgb 13.0, Hct 36.8 L, MCV 89.5, MCH 31.6, MCHC 35.3, RDW Std Deviation 38.6, RDW Coeff of Una 11.9, Plt Count 345, MPV 9.9, Immature Gran % (Auto) 0.700, Neut % (Auto) 94.0 H, Lymph % (Auto) 2.6 L, [place] % (Auto) 2.6, Eos % (Auto) 0.0, Baso % (Auto) 0.1, Absolute Neuts (auto) 20.8 H, Absolute Lymphs (auto) 0.57 L, Nucleated RBC % 0 11/19/21 05:35: Sodium 134 L, Potassium 3.9, Chloride 99, Carbon Dioxide 27.0, Anion Gap 8, BUN 26 H, Creatinine 0.90, Estim Creat Clear Calc 52.07, Est GFR (MDRD) Af Amer 103, Est GFR (MDRD) Non-Af 85, BUN/Creatinine Ratio 28.8 H, Glucose 157 H, Calcium 8.9, Magnesium 2.2, Total Bilirubin 0.70, Direct Bilirubin 0.18, AST 48 H, ALT 57, Alkaline Phosphatase 74, Total Protein 6.5, Albumin 2.5 L, Globulin 4.0 11/20/21 03:50: WBC 20.1 H, RBC 3.80 L, Hgb 11.9 L, Hct 33.9 L, MCV 89.2, MCH 31.3, MCHC 35.1, RDW Std Deviation 38.7, RDW Coeff of Una 11.9, Plt Count 330, MPV 9.8, Immature Gran % (Auto) 0.700, Neut % (Auto) 93.7 H, Lymph % (Auto) 2.3 L, [place] % (Auto) 3.2, Eos % (Auto) 0.0, Baso % (Auto) 0.1, Absolute Neuts (auto) 18.8 H, Absolute Lymphs (auto) 0.47 L, Nucleated RBC % 0 11/20/21 03:50: Sodium 138, Potassium 4.3, Chloride 104, Carbon Dioxide 28.0, Anion Gap 6, BUN 29 H, Creatinine 0.85, Estim Creat Clear Calc 55.14, Est GFR (MDRD) Af Amer 110, Est GFR (MDRD) Non-Af 91, BUN/Creatinine Ratio 34.0 H, Glucose 147 H, Calcium 8.3 L Micro: Microbiology 11/18/21 10:05 Sputum, Expectorated/Coughed Gram Stain - Final 11/18/21 10:05 Sputum, Expectorated/Coughed Respiratory Culture - Preliminary Coag Negative Staph 11/14/21 18:27 Blood Culture (Wb) #2 - Right Wrist Blood Culture - Preliminary No growth in 48 hours. 11/14/21 18:10 Blood Culture (Wb) - Anticubital Right Blood Culture - Preliminary No growth in 48 hours. 11/14/21 20:25 Mucosa - Nasopharyngeal Respiratory Panel (PCR) - Final 11/14/21 22:00 Urine, Clean Catch Legionella Antigen - Final 11/14/21 22:00 Interface Orders Streptococcus pneumoniae Antigen (M - Final 11/14/21 18:27 Nasal Secretion SARS-CoV-2 & FLU Antigen (Rapid) - Final Rhythm Strip Rhythm Strip: poss afib (see ekg) Rate: 70 Ectopy: None Physical Exam Const alert and oriented x3 General Appearance: cooperative HEENT normocephalic, head/scalp atraumatic and moist oral mucous membranes General Ear: hearing grossly impaired Eyes PERRL, EOMs intact bilaterally and conjunctivae normal Neck supple General: trachea midline Chest inspection of chest normal Resp Effort and Inspection: tachypneic Auscultation: rales and diminished lung sounds Cardio regular rate and regular rhythm GI normal to inspection, nondistended, normoactive bowel sounds Extremity no clubbing, cyanosis or edema Skin no rashes or lesions noted Neuro CN's II-XII intact bilaterally, moves all extremities and no focal motor deficits Psych cooperative and affect normal Charges/Coding Visit Charges Inpatient E&M: 51733 Subs Hosp L2
[2021-11-20 06:38] LABS: Differential Comment SCANNED
--- NOTE | 2021-11-20 07:26 | DS.PCM_ITS ---
Providers Date of Admission: 11/14/21 Primary Care Physician: Dr. Fransico Salinas MD Consultations 11/17/21 08:59 Consult: Assistant Clinical Nurse Manager / Pulmonary Medicine Routine Consulting Provider: Austin Covarrubias Reason for Consult: respiratory failure EMERGENT Consult: No MD Notified: Yes Date Notified: 11/17/21 Time Notified: 08:59 Method of Notification: Text Reason For Visit: hypoxia, bl pna Diagnosis Discharge Diagnosis (1) Acute respiratory failure with hypoxemia: Status: Acute Code(s): J96.01 - Acute respiratory failure with hypoxia Medications at Discharge Home Medications aspirin 81 mg PO DAILY 11/14/21 multivitamin with iron 1 tab PO DAILY 11/14/21 Hospital Course Summary of Care Provided Minutes Spent on Discharge: 45 Hospital Course: Patient is an 81-year-old gentleman presenting with 2-week history of persistent cough and progressive shortness of breath over the past couple of days. Chest x-ray obtained on admission demonstrated patchy bilateral pneumonia admitted to regular nursing floor where patient is currently being managed 1. Acute hypoxic respiratory failure ? Present on admission. This is secondary to patient bilateral pneumonia patient was placed on broad-spectrum antibiotic therapy as well as supplemental oxygen which is currently being titrated to keep saturation greater than 90. Patient still remains hypoxic and dyspneic at rest. Patient was on IV fluid this is being continued given 40 mg of IV Lasix for suspected fluid overload -11/16/2021: Patient seen still remains dyspneic at rest. Currently requiring 3 t o 5 L flow per minute to maintain adequate saturation -11/17/2021; Patient oxygen requirement increasing currently on 8 L flow per minute. Repeat chest x-ray obtained last evening demonstrated worsening bilateral infiltrate. An order has been given for patient to undergo COVID screening with PCR. Consult was placed to pulmonary medicine. Also ordered CT of the chest to rule out VTE in view of patient elevated D-dimer. ?11/18/2021; Patient was transferred to the intensive care unit the day prior as a result of increasing work of breathing with significant hypoxia. CT of the chest obtained demonstrated Findings suggestive of chronic interstitial fibrosis and honeycombing involving both lungs both upper and lower lobes worse in the lower lobes.. Please on noninvasive ventilation Airvo. Case discussed with Dr. Covarrubias with pulmonary medicine/intensive care. Plan is to increase patient current steroid dose. His antibiotic therapy was also broadened.. Case was also discussed with patient's daughter the day prior ? 11/19/2021; Patient seen remains in ICU on high flow oxygen. Patient CODE STATUS was changed from full code to DNR CC. Patient has elevated WBC count as well as glucose this is as a result of patient receiving high-dose steroids 11/20/2021 after further discussion with family patient and family elected to be discharged home with hospice 2. Suspected congestive heart failure ? With preserved ejection fraction ordered a 2D echo patient placed on fluid restriction as well as diuretics in addition to management as described above -Acute congestive heart failure ruled out. 2D echo obtained demonstrated preserved ejection fraction. 3. Hypokalemia ? Corrected per protocol subsequent monitoring with daily BMPs ordered 4. Class I obesity with BMI of 31.4 ? Weight loss advised 5. Leukocytosis ? Due to patient's underlying infection as well as recent steroid use monitoring with daily CBC 6. Severe malnutrition - related to acute illness and inability to consume adequate nutrition to meet est nutritional needs as evidenced by 6.1% wt loss and <50% po intake x ~ 2 wks with treatment of Will d/c ensure enlive and give ensure clear w/ medpass 4x/day Will provide fortified foods at meals for increased nutrition if consumed. 7. Obstructive sleep apnea ? Per history patient currently does not use any PAP therapy at night 8. DVT prophylaxis ? SC Lovenox Physical Exam Narrative GENERAL: dyspneic at rest HEENT: Atraumatic; EYES; Anicteric, Normal Conjunctiva NECK; supple, normal thyroid, RESPIRATORY: Diminished to auscultation CARDIOVASCULAR: Regular S1 S2, GI: soft, normoactive bowel sounds, : No Renal angle tenderness; EXTREMITIES: No edema, no clubbing, MUSCULOSKELETAL: no muscle wasting NEURO: Awake; no lateralizing signs. SKIN: No Rash PSYCH; Flat affect Medical Records Data Medical Nutrition Assessment Dietitian: Malnutrition Criteria Met Start: 11/15/21 10:46 Freq: Status: Active Protocol: Document 11/18/21 11:35 (Rec: 11/18/21 11:35 [id number]) Nutrition Malnutrition Evidence of Malnutrition Exists Yes Malnutrition (severe): Acute Illness/Injury Evidenced By Suboptimal Energy Intake ( Severe),Weight Loss (Severe) Clinical Problem Acute Disease or Injury Related Malnutrition Etiology severe, acute malnutrition related to inadequate energy intake w/ onset of acute illness Signs/Symptoms as evidenced by unintentional wt loss of 5.9kg/6.5% x 2 weeks; estimated PO intake meeting <50% of estimated energy needs >5 days Status Active Problem Recommendation Dietitian Recommendations/Changes continue regular diet w/ fortified foods and 120mL ensure clear 4x/day w/ medpass due to malnutrition Weight / BMI Weight Weight: 81.7 kg Body Mass Index (BMI) 30.7 ABG / Lab / Microbiology Data Result Diagrams: 11/20/21 03:50 11/20/21 03:50 Laboratory: Laboratory Results - last 24 hr 11/17/21 14:15: DERREK Screen Negative, KYLE-1 Antibody Not Reportable, SS-A/Ro IgG Antibody Not Reportable, SS-B/La IgG Antibody Not Reportable, Sm (Carter) Antibody Not Reportable, REORDERING CLERK Antibody Not Reportable, Scl-70 Scleroderma Ab Not Reportable, Double Strand DNA Ab Not Reportable, Centromere B Antibody Not Reportable 11/20/21 03:50: WBC 20.1 H, RBC 3.80 L, Hgb 11.9 L, Hct 33.9 L, MCV 89.2, MCH 31.3, MCHC 35.1, RDW Std Deviation 38.7, RDW Coeff of Una 11.9, Plt Count 330, MPV 9.8, Immature Gran % (Auto) 0.700, Neut % (Auto) 93.7 H, Lymph % (Auto) 2.3 L, [place] % (Auto) 3.2, Eos % (Auto) 0.0, Baso % (Auto) 0.1, Absolute Neuts (auto) 18.8 H, Absolute Lymphs (auto) 0.47 L, Nucleated RBC % 0, Differential Comment SCANNED 11/20/21 03:50: Sodium 138, Potassium 4.3, Chloride 104, Carbon Dioxide 28.0, Anion Gap 6, BUN 29 H, Creatinine 0.85, Estim Creat Clear Calc 55.14, Est GFR (MDRD) Af Amer 110, Est GFR (MDRD) Non-Af 91, BUN/Creatinine Ratio 34.0 H, Glucose 147 H, Calcium 8.3 L Microbiology: Microbiology 11/14/21 18:27 Blood Culture (Wb) #2 - Right Wrist Blood Culture - Final No growth in 5 days. 11/14/21 18:10 Blood Culture (Wb) - Anticubital Right Blood Culture - Final No growth in 5 days. 11/18/21 10:05 Sputum, Expectorated/Coughed Gram Stain - Final 11/18/21 10:05 Sputum, Expectorated/Coughed Respiratory Culture - Preliminary Coag Negative Staph 11/14/21 20:25 Mucosa - Nasopharyngeal Respiratory Panel (PCR) - Final 11/14/21 22:00 Urine, Clean Catch Legionella Antigen - Final 11/14/21 22:00 Interface Orders Streptococcus pneumoniae Antigen (M - Final 11/14/21 18:27 Nasal Secretion SARS-CoV-2 & FLU Antigen (Rapid) - Final D/C Instructions Discharge Diet: No restrictions Discharge Activity: Return to Normal Activity Call your doctor if you observe: Fever of 101 or Higher, Shortness of breath, Fainting spells and Chest pain Meaningful Use Info Meaningful Use Diagnoses (Choose all that apply): None applicable Discharge Plan Admission Admit Date/Time: 11/14/21 19:16 Attending Provider: Jaylen Ayala Primary Care Provider: Fransico Salinas Consulting Providers: Austin Covarrubias Discharge Orders/Prescriptions Prescriptions: Continued aspirin 81 mg Tablet,Delayed Release (Dr/Ec) 81 mg PO DAILY RF: 0 multivitamin with iron Tablet 1 tab PO DAILY RF: 0 Discontinued doxycycline hyclate 100 mg Tablet 100 mg PO BID RF: 0 Referrals / Follow Up: Fransico Salinas MD [Primary Care Provider] - Within 1 Week Disposition Disposition (needs filled in before D/C Order can be placed): Hospice in Home Charges/Coding Visit Charges Inpatient E&M: 19287 Disch Hosp
[2021-11-20] MEDS: Albuterol 2.5 MG/3 ML VIAL.NEB. INHALATION (07:28)
[2021-11-20] MEDS: Ondansetron 4 MG/2 ML Vial IV (07:40)
[2021-11-20] MEDS: Nitroglycerin (INPATIENT USE) 0.4 MG TAB.SUBL SL ×3 (07:43→07:58)
[2021-11-20] MEDS: Morphine 4 MG/ML Syringe IV (08:05)
--- NOTE | 2021-11-20 09:10 | CASEMGMT ---
Social Work As per physician's note, pt is to return home on hospice today. SW called [facility]. Pt is to have DME delivered to the home, then family is to let hospital know when equipment is delivered so hospital can set up transport and notify [facility]. SW called , confirmed plan. She will be in today and either she or pt's son will let hospital know when DME is delivered so we can set up transport and notify [facility]. Green sheet will be placed on chart with transport form, though SW remains available for assist as needed. ROBERT Rocha
[2021-11-20] MEDS: Aspirin E.C. 81 MG Tablet PO (10:05)
[2021-11-20] MEDS: Ensure Clear 120 ML Liquid PO ×3 (10:05→17:05)
[2021-11-20] MEDS: Potassium Chloride Oral Tablet 20 MEQ PO ×2 (10:05→17:05)
[2021-11-20] MEDS: Enoxaparin 40 MG/0.4 ML Syringe SC (10:05)
[2021-11-20 10:50] LABS: CCP IgG Antibodies 5 units (0-19); Perinuclear Ab (P-ANCA) <1:20 titer (Neg:<1:20)
== END 2021-11-20 18:56 | disposition hospice, home (50) | DRG 189 ==
LOC: ED 19:17 → MS3 19:44 → ICU 11-17 12:02
PROVIDERS: Internal Medicine Critical Care Medicine; Admitting Provider Family Medicine; Emergency Provider Emergency Medicine; PCP Family Medicine; Visit Provider Internal Medicine
DX: J96.01 Acute respiratory failure with hypoxia (principal); E43 Unspecified severe protein-calorie malnutrition; J18.9 Pneumonia, unspecified organism; J84.112 Idiopathic pulmonary fibrosis; G47.33 Obstructive sleep apnea (adult) (pediatric); E87.6 Hypokalemia; Z79.82 Long term (current) use of aspirin; Z87.891 Personal history of nicotine dependence; E66.9 Obesity, unspecified; Z68.31 Body mass index [BMI] 31.0-31.9, adult; Z66 Do not resuscitate
CPT/HCPCS: 36415; 36600; 71045; 71275; 80048; 80053; 80076; 82803; 83605; 83735; 83880; 84145; 84484; 85025; 85379; 86038; 86200; 86225; 86235; 86256; 86431; 87040; 87070; 87077; 87205; 87428; 87449; 87633; 87635; 87641; 93005; 93306; 94640; 94660; 94762; 97162; 97166; 97530; 97802; 97803; 99251; 99283; J7030; J7050; Q9967; A4216; G0463; J0696; J1940; J2405; J2930; U0003; U0005

== ENCOUNTER 2022-05-13 11:13 | Outpatient (CLI) | payer MEDICARE, SELFPAY ==
[2022-05-13 11:31] LABS: Hematocrit 47.2 % (40-54); Hemoglobin 16.9 g/dL (13.0-16.5); Mean Corp Hgb Conc 35.8 g/dL (32-36); Mean Corpuscular Hgb 30.6 pg (27.0-32.0); Mean Corpuscular Volume 85.5 fL (80-94); Mean Platelet Vol. 11.9 fl (6.2-12.0); Platelet Count 172 K/mm3 (150-450); RBC Distribution Width CV 12.3 % (11.6-14.6); RBC Distribution Width SD 38.3 fl (35.1-43.9); Red Blood Count 5.52 M/mm3 (4.6-6.2); White Blood Count 4.6 K/mm3 (4.4-11.0)
[2022-05-13 11:40] LABS: ALB/GLOB Ratio 0.9 RATIO (0.9-2.4); AST(SGOT) 11 U/L (15-37); Alanine Aminotransfer ALT/SGPT 18 U/L (16-61); Albumin, Serum 3.3 g/dL (3.2-5.0); Alkaline Phosphatase 65 U/L (45-117); Anion Gap 4 (5-15); BUN 22 mg/dL (7-18); BUN/Creat Ratio 27.8 RATIO (10-20); Calcium,Total 9.4 mg/dL (8.5-10.1); Chloride 106 mmol/L (98-107); Creatinine, Serum 0.79 mg/dL (0.70-1.30); EST Glomerular Filtration Rate 99 mL/min (>60); Est Glom Filt Rate - Afr Amer 120 mL/min (>60); Globulin 3.5 g/dL (2.2-4.2); Glucose 104 mg/dL (74-106); Potassium 4.1 mmol/L (3.5-5.1); Protein, Total 6.8 g/dL (6.4-8.2); Sodium Level 140 mmol/L (136-145)
== END 2022-05-13 23:59 | disposition home or self-care (01) ==
LOC: LABSPEC 11:21
PROVIDERS: PCP Family Medicine
DX: J84.9 Interstitial pulmonary disease, unspecified (principal)
CPT/HCPCS: 80053; 85027